=== PATIENT | female | born 1970 | race Caucasian/White ===

== ENCOUNTER 2020-05-11 13:06 | Outpatient (REF) | payer OTHER, SELFPAY | END 2020-05-11 13:07 | disposition home or self-care (01) | LOC: HO.LAB 13:06 | PROVIDERS: Visit Provider Internal Medicine | DX: Z20.822 Contact with and (suspected) exposure to COVID-19 (principal) | CPT/HCPCS: 36415; C9803; U0003 ==

== ENCOUNTER 2020-06-08 11:09 | Outpatient (REF) | payer OTHER, SELFPAY ==
--- NOTE | 2020-06-08 | US_ITS ---
EXAMINATION: US THYROID CLINICAL INFORMATION: Nontoxic multinodular goiter COMPARISON: None TECHNIQUE: Linear transducer grayscale and color Doppler examination with attention to the region of the thyroid. FINDINGS: SIZE: Measurements of the thyroid lobes and nodules are given in sagittal, anteroposterior and transverse dimensions respectively. Right Thyroid Lobe: 4.77 x 1.94 x 2.16 cm, volume 10.5 mL. Parenchyma: The gland echotexture is homogeneous. Thyroid vascularity is normal. Left Thyroid Lobe: 5.46 x 1.69 x 1.91 cm, volume 9.26 mL. Parenchyma: The gland echotexture is homogeneous. Thyroid vascularity is normal. Isthmus: 0.42 cm in maximum AP dimension. Estimated total number of nodules greater than or equal to 1 cm: one. E Business Specialist nodules are described as follows: 1. Location: Right Midpole. Size: 1.0 x 0.53 x 0.73 cm, volume 0.20 mL. Nodule characteristics: Composition: Mixed cystic and solid (1). Echogenicity: Hyperechoic (1). Shape: Wider Margins: Smooth (0). Echogenic Foci: None (0). ACR TI-RADS total points: 3 ACR TI-RADS category: 3 No additional nodules seen. NODES: No lymphadenopathy is seen in the tissue surrounding the thyroid gland. US/US thyroid IMPRESSION: 1.0 cm nodule mid pole right thyroid lobe with TRi Rad category 3. No intervention needed. Recommend 1 year follow-up. ACR TI-RADS RECOMMENDATIONS: Ultrasound-guided fine-needle aspiration, followup ultrasound, no further follow up. * TR1 (0 point) and TR 2 (2 points): No FNA or follow up * TR3 (3 points): FNA if more than or equal to 2.5 cm in maximum dimension, follow up in 1, 3 and 5 years if 1.5 to 2.4 cm in maximum dimension. * TR 4 (4-6 points): FNA if more than or equal to 1.5 cm in maximum dimension, follow up in 1, 2, 3 and 5 years if 1 to 1.4 cm in maximum dimension. * TR 5 (more than or equal to 7 points): FNA if more than or equal to 1 cm in maximum dimension, follow up every year for 5 years if 0.5 to 0.9 cm in maximum dimension. TR3, TR4 or TR5 nodules that are below the size threshold for follow up receive no follow up.
== END 2020-06-08 11:10 | disposition home or self-care (01) ==
LOC: HO.US 11:09
PROVIDERS: Visit Provider Internal Medicine Endocrinology, Diabetes & Metabolism
DX: E04.2 Nontoxic multinodular goiter (principal)
CPT/HCPCS: 76536

== ENCOUNTER 2020-06-12 12:44 | Outpatient (REF) | payer OTHER, SELFPAY ==
[2020-06-16 22:52] LABS: HPV mRNA E6/E7 rflx Not Detected (Not Detected)
== END 2020-06-12 12:45 | disposition home or self-care (01) ==
LOC: HO.LAB 12:44
PROVIDERS: Visit Provider Advanced Practice Midwife
DX: Z01.411 Encounter for gynecological examination (general) (routine) with abnormal findings (principal); Z11.51 Encounter for screening for human papillomavirus (HPV); R21 Rash and other nonspecific skin eruption
CPT/HCPCS: 36415; 87624; 88142

== ENCOUNTER 2020-06-15 14:44 | Outpatient (REF) | payer OTHER, SELFPAY ==
--- NOTE | ~2020-06-15 | MM_ITS ---
EXAMINATION: MM SCREENING DIGITAL BREAST TOMOSYNTHESIS, BILATERAL CLINICAL INFORMATION: Screening. Asymptomatic. The lifetime risk of breast cancer based on the Tyrer-Cuzick Model is 6%. COMPARISON: Mammography: 01/10/2018, 03/14/2014 TECHNIQUE: Digital breast tomosynthesis is performed in both the craniocaudal and mediolateral oblique views along with computer-aided detection (CAD). Synthesized 2D images are generated from the tomosynthesis. Additional exaggerated left CC view is provided. FINDINGS: There are scattered areas of fibroglandular density (ACR BI-RADS breast composition Category b). Breast tissue composition borders on heterogeneously dense. There is no developing density or interval mass or architectural abnormality. No abnormal calcifications. There are some scattered punctate and vascular and dermal calcifications. No significant changes. MM/MM tomosynthesis screening BI IMPRESSION: No significant changes from prior exams. ASSESSMENT: BI-RADS 1: Negative RECOMMENDATION: Routine annual mammography screening. This patient's information was entered into a reminder system with a target due date for their next mammogram.
== END 2020-06-15 14:45 | disposition home or self-care (01) ==
LOC: HO.MAMMO 14:44
PROVIDERS: PCP Internal Medicine Geriatric Medicine; Visit Provider Internal Medicine Geriatric Medicine
DX: Z12.31 Encounter for screening mammogram for malignant neoplasm of breast (principal)
CPT/HCPCS: 77063; 77067

== ENCOUNTER → 2020-06-29 11:01 | Outpatient (BNVA) | payer OTHER, SELFPAY | PROVIDERS: PCP Internal Medicine Geriatric Medicine; Visit Provider Physician Assistant ==

== ENCOUNTER → 2020-07-22 11:09 | Outpatient (BNVA) | payer OTHER, SELFPAY | PROVIDERS: PCP Nurse Practitioner Family; Visit Provider Internal Medicine Endocrinology, Diabetes & Metabolism ==

== ENCOUNTER 2020-07-23 10:53 | Outpatient (REF) | payer OTHER, SELFPAY ==
[2020-07-23 13:48] LABS: Free T4 (Free Thyroxine) 1.18 ng/dL (0.71-1.85); Thyroid Stimulating Hormone 1.12 uIU/mL (0.32-4.0)
[2020-07-24 05:12] LABS: Thyroid Peroxidase Antibodies <1 IU/mL (<9)
[2020-07-24 17:56] LABS: Thyroglobulin Antibodies <1 IU/mL (< or = 1)
== END 2020-07-23 10:54 | disposition home or self-care (01) ==
LOC: HO.LAB 10:53
PROVIDERS: PCP Internal Medicine Geriatric Medicine; Visit Provider Internal Medicine Endocrinology, Diabetes & Metabolism
DX: E04.2 Nontoxic multinodular goiter (principal)
CPT/HCPCS: 36415; 84439; 84443; 86376; 86800

== ENCOUNTER 2020-09-18 11:08 | Emergency (ER) | payer OTHER, SELFPAY ==
--- NOTE | ~2020-09-18 | XR_ITS ---
EXAMINATION: XR CHEST CLINICAL INFORMATION: Pain COMPARISON: None TECHNIQUE: Frontal view of the chest was obtained. FINDINGS: No significant abnormality is noted involving the heart, lungs, mediastinum, bony thorax or soft tissues. XR/XR chest 1V IMPRESSION: Unremarkable chest examination.
[2020-09-18 11:18] VITALS: BP 178/83; PULSE 102; RESP 18; TEMP 36.6; O2SAT 99; BMI 27.5
--- NOTE | 2020-09-18 11:18 | ED_ITS ---
HPI - Arrhythmia/Palpitations General Chief Complaint: Arrhythmia/Palpitations Stated Complaint: RAPID HEART BEAT Time Seen by Provider: 09/18/20 11:17 Source: patient Mode of arrival: ambulatory Limitations: no limitations History of Present Illness MD complaint: heart racing and palpitations Onset (ago): week(s) (1) Duration: intermittent Severity: mild Context: occurred during rest and occurred during exertion Associated symptoms: chest pain and anxiety Related Data Home Medications Medication Instructions Recorded Confirmed albuterol sulfate 90 mcg/actuation INHALATION 06/12/20 07/22/20 aerosol inhaler amitriptyline 25 mg tablet 25 mg PO DAILY 06/12/20 07/22/20 atorvastatin 10 mg tablet 10 mg PO DAILY 06/12/20 07/22/20 cholecalciferol (vitamin D3) 25 25 mcg PO DAILY 06/12/20 07/22/20 mcg (1,000 unit) tablet cyanocobalamin (vitamin B-12) 1,000 mcg PO DAILY 06/12/20 07/22/20 1,000 mcg tablet ferrous sulfate 325 mg (65 mg 325 mg PO DAILY 06/12/20 07/22/20 iron) tablet hydrochlorothiazide 12.5 mg tablet 12.5 mg PO DAILY 06/12/20 07/22/20 metformin 500 mg tablet,extended 1,000 mg PO BID 06/12/20 07/22/20 release 24 hr propranolol 80 mg capsule,24 80 mg PO DAILY 06/12/20 07/22/20 hr,extended release trazodone 50 mg tablet 50 mg PO BEDTIME 06/12/20 07/22/20 alcohol swabs pad TOPICAL 07/22/20 07/22/20 sumatriptan succinate 50 mg tablet 50 mg PO ONCE tab 07/22/20 07/22/20 Previous Rx's Medication Instructions Recorded clotrimazole 1 % topical cream 1 appl TOPICAL BID 14 Days #30 g 06/12/20 bisacodyl 5 mg tablet,delayed 10 mg PO ONCE 1 Days #2 tab 06/29/20 release docusate sodium 100 mg capsule 200 mg PO BEDTIME #60 cap 06/29/20 omeprazole 20 mg capsule,delayed 20 mg PO DAILY #30 cap 06/29/20 release polyethylene glycol 3350 17 gram 17 g PO DAILY #30 ea 06/29/20 oral powder packet polyethylene glycol 3350 17 238 g PO ONCE 1 Days #238 g 06/29/20 gram/dose oral powder Allergies Allergy/AdvReac Type Severity Reaction Status Date / Time penicillin G [Penicillin G] Allergy Mild RASH Unverified 01/23/20 15:48 penicillin V Allergy Unknown unknown Verified 06/29/20 11:02 PCN Allergy Unknown rash, Uncoded 10/07/19 00:00 swelling Review of Systems Review of Systems: Constitutional : No Fever, No Chills ENT/Mouth : No sore throat, No Rhinorrhea, No Swallowing Difficulty Eyes: No Eye Pain, No Swelling, No Redness Cardiovascular : pos Chest Pain, no SOB, No Orthopnea, no Edema, pos palpitati ons Respiratory : No Cough, No Sputum, No Wheezing, positive dyspnea Gastrointestinal : No Nausea, No Vomiting, No Diarrhea, No abdominal Pain, No Hematochezia, No Melena Genitourinary : No Dysuria, No Urinary Frequency, No Hematuria Musculoskeletal : No joint pain, No Myalgias Skin : No Skin Lesions, No rash Neuro : No Weakness, No Numbness, No Dizziness, No Headache Psych : posAnxiety/Panic, No Depression Heme/Lymph: No Bruising, No Lymphadenopathy Endocrine : No Polyuria, No Polydipsia All other systems reviewed and are negative [facility] Past Medical History Attestation statement: The following information was validated with the patient. 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 Oriented X3. No acute distress. Anxious tearful Eyes: Pupils equal, round and reactive to light. ENT: Pharynx normal. Neck: Normal inspection. Neck supple. CVS: Normal heart rate and rhythm. Pulses normal. Respiratory: No respiratory distress. Breath sounds normal. Abdomen: Soft and nontender. Skin: Skin warm and dry. Normal skin color. Normal skin turgor. Extremities: No lower extremity edema. No calf ttp Neuro: Oriented X 3. No motor deficit. No sensory deficit. Course Course Course Narrative: EKG nonischemic trop negative with 2 days of symptoms, ddimer negative, patient already on propanolol MDM - Arrhythmia/Palpitations MDM Narrative Medical decision making narrative: 50 yo female with DM, asthma here with palpitations and central chest discomfort x 1 week hx of same in past due to stress, she is tearful and upset about her son on dialysis, at this time labs, troponin, TSH, ddimer CXR and IV ativan for anxiety ordered, dispo per results and findings. Lab Data Result diagrams: 09/18/20 11:28 09/18/20 11:28 Labs: Lab Results 09/18/20 09/18/20 09/18/20 Range/Units 11:27 11:28 11:28 WBC 10.3 (4.8-10.8) X10*3/uL RBC 4.97 (4.20-5.50) X10*6/uL Hgb 13.5 (12.0-16.0) g/dl Hct 42.6 (37-47) % MCV 85.7 (80-98) fL MCH 27.2 (27.0-33.0) pg MCHC 31.7 (31.0-35.0) g/dl RDW 13.4 (11.0-16.0) % Plt Count 362 (160-400) X10*3/uL MPV 10.7 (9.4-12.3) fL Immature Gran % (Auto) 0.3 (0.0-0.4) % Neut % (Auto) 72.3 (45-73) % Lymph % (Auto) 19.2 L (20-40) % [place] % (Auto) 5.3 (2-11) % Eos % (Auto) 2.4 (0-4) % Baso % (Auto) 0.5 (0-2) % Lymph # (Auto) 2.0 (1.2-4.9) X10*3/uL [place] # (Auto) 0.6 (0.1-1.2) X10*3/uL Eos # (Auto) 0.3 (0.0-0.4) X10*3/uL Baso # (Auto) 0.1 (0.0-0.2) X10*3/uL Abs Immat Gran (auto) 0.03 (0.00-0.03) X10*3/uL Absolute Neuts (auto) 7.5 (2.0-8.3) X10*3/uL Absolute Nucleated RBC 0.000 (0.0-0.012) X10*3/uL Nucleated RBC % (auto) 0.0 (0.0-0.2) /100WBC D-Dimer < 200 NG/ML Sodium (135-145) mmol/L Potassium (3.3-5.1) mmol/L Chloride (96-108) mmol/L Carbon Dioxide (22-29) mmol/L Anion Gap (12-20) BUN (9-16) mg/dL Creatinine (0.5-1.4) mg/dL Estim Creat Clear Calc Estimated GFR Random Glucose (60-115) mg/dL Calcium (8.4-10.2) mg/dL Magnesium (1.6-2.6) mg/dL Total Bilirubin (0.0-1.0) mg/dL Direct Bilirubin (0.0-0.5) mg/dL AST (5-31) U/L ALT (0-31) U/L Alkaline Phosphatase (39-117) U/L Troponin I High Sens < 3.5 (<3.5-17.0) ng/L Total Protein (6.5-8.0) g/dL Albumin (3.5-5.0) g/dL TSH (0.32-4.0) uIU/mL 09/18/20 Range/Units 11:28 WBC (4.8-10.8) X10*3/uL RBC (4.20-5.50) X10*6/uL Hgb (12.0-16.0) g/dl Hct (37-47) % MCV (80-98) fL MCH (27.0-33.0) pg MCHC (31.0-35.0) g/dl RDW (11.0-16.0) % Plt Count (160-400) X10*3/uL MPV (9.4-12.3) fL Immature Gran % (Auto) (0.0-0.4) % Neut % (Auto) (45-73) % Lymph % (Auto) (20-40) % [place] % (Auto) (2-11) % Eos % (Auto) (0-4) % Baso % (Auto) (0-2) % Lymph # (Auto) (1.2-4.9) X10*3/uL [place] # (Auto) (0.1-1.2) X10*3/uL Eos # (Auto) (0.0-0.4) X10*3/uL Baso # (Auto) (0.0-0.2) X10*3/uL Abs Immat Gran (auto) (0.00-0.03) X10*3/uL Absolute Neuts (auto) (2.0-8.3) X10*3/uL Absolute Nucleated RBC (0.0-0.012) X10*3/uL Nucleated RBC % (auto) (0.0-0.2) /100WBC D-Dimer NG/ML Sodium 138 (135-145) mmol/L Potassium 3.7 (3.3-5.1) mmol/L Chloride 98 (96-108) mmol/L Carbon Dioxide 30 H (22-29) mmol/L Anion Gap 14 (12-20) BUN 9 (9-16) mg/dL Creatinine 0.75 (0.5-1.4) mg/dL Estim Creat Clear Calc 74.9 Estimated GFR > 60 Random Glucose 173 H (60-115) mg/dL Calcium 10.6 H (8.4-10.2) mg/dL Magnesium 1.7 (1.6-2.6) mg/dL Total Bilirubin 0.3 (0.0-1.0) mg/dL Direct Bilirubin 0.2 (0.0-0.5) mg/dL AST 16 (5-31) U/L ALT 19 (0-31) U/L Alkaline Phosphatase 82 (39-117) U/L Troponin I High Sens (<3.5-17.0) ng/L Total Protein 7.9 (6.5-8.0) g/dL Albumin 4.4 (3.5-5.0) g/dL TSH 0.84 (0.32-4.0) uIU/mL ECG Data Attestation: I personally reviewed and interpreted this ECG as follows: ECG interpretation date: 09/18/20 ECG interpretation time: 11:46 Interpretation: Rate: 82 Rhythm: NSR [place]: normal Normal P waves. Normal TISH. Normal QRS complex. ST T wave : normal no LA qTC: normal prior studies: normal , no acute ischemia The study has been interpreted contemporaneously by me. . Discharge Plan Discharge Clinical Impression: Palpitations, Anxiety Patient Disposition: Home, Self-Care Instructions: Heart Palpitations (ED), Anxiety (ED) Additional Instructions: return to ED for any worsening symptoms or concerns YOUR CALCIUM WAS SLIGHTLY HIGH PLEASE HAVE IT RECHECKED IN ONE WEEK WITH YOUR FAMILY DOCTOR Prescriptions: No Action alcohol swabs Pads, Medicated topical RF: 0 hydrochlorothiazide 12.5 mg tablet 12.5 mg PO DAILY RF: 0 cholecalciferol (vitamin D3) 25 mcg (1,000 unit) tablet 25 mcg PO DAILY RF: 0 metformin 500 mg tablet extended release 24 hr 1,000 mg PO BID RF: 0 albuterol sulfate 90 mcg/actuation HFA aerosol inhaler inhalation RF: 0 propranolol 80 mg capsule,extended release 24 hr 80 mg PO DAILY RF: 0 amitriptyline 25 mg tablet 25 mg PO DAILY RF: 0 cyanocobalamin (vitamin B-12) 1,000 mcg tablet 1,000 mcg PO DAILY RF: 0 atorvastatin 10 mg tablet 10 mg PO DAILY RF: 0 trazodone 50 mg tablet 50 mg PO BEDTIME RF: 0 ferrous sulfate 325 mg (65 mg iron) tablet 325 mg PO DAILY RF: 0 clotrimazole 1 % cream 1 appl topical BID 14 Days Qty: 30 RF: 0 sumatriptan succinate 50 mg tablet 50 mg PO ONCE RF: 0 bisacodyl [Dulcolax (bisacodyl)] 5 mg tablet,delayed release (DR/EC) 10 mg PO ONCE 1 Days Qty: 2 RF: 0 polyethylene glycol 3350 [Miralax] 17 gram/dose powder 238 g PO ONCE 1 Days Qty: 238 RF: 0 docusate sodium [Colace] 100 mg capsule 200 mg PO BEDTIME Qty: 60 RF: 5 polyethylene glycol 3350 [Miralax] 17 gram powder in packet 17 g PO DAILY Qty: 30 RF: 5 omeprazole 20 mg capsule,delayed release(DR/EC) 20 mg PO DAILY Qty: 30 RF: 5 Referrals: Name,MD Tiburcio [Primary Care Provider] - 1 week (RECHECK CALCIUM LEVEL) Stand Alone Forms: Work/School Release
--- NOTE | 2020-09-18 11:24 | ECG_ITS ---
Test Reason : PALPITATION Blood Pressure : / mmHG Vent. Rate : 082 BPM Atrial Rate : 082 BPM P-R Int : 124 ms QRS Dur : 076 ms QT Int : 392 ms P-R-T Axes : 026 024 039 degrees QTc Int : 457 ms Normal sinus rhythm Normal ECG When compared with ECG of 06-JUL-2017 08:21, No significant change was found Referred By: Dotty Barrientos Electronically Signed By:NORA COTTER MD
[2020-09-18 11:35] LABS: MANUAL DIFF FLAG NO
[2020-09-18] MEDS: LORazepam 2 MG/ML VIAL 0.5 MG IVPUSH (11:36)
[2020-09-18 11:37] LABS: Basophils Absolute Auto 0.1 X10*3/uL (0.0-0.2); Basophils Percent Auto 0.5 % (0-2); Eosinophils Absolute Auto 0.3 X10*3/uL (0.0-0.4); Eosinophils Percent Auto 2.4 % (0-4); Hematocrit 42.6 % (37-47); Hemoglobin 13.5 g/dl (12.0-16.0); Imm Gran Abs Auto 0.03 X10*3/uL (0.00-0.03); Imm Gran Pct Auto 0.3 % (0.0-0.4); Lymphocytes Percent Auto 19.2 % (20-40); Mean Corpuscular HGB Conc 31.7 g/dl (31.0-35.0); Mean Corpuscular Hemoglobin 27.2 pg (27.0-33.0); Mean Corpuscular Volume 85.7 fL (80-98); Mean Platelet Volume 10.7 fL (9.4-12.3); Monocytes Absolute Auto 0.6 X10*3/uL (0.1-1.2); Monocytes Percent Auto 5.3 % (2-11); Neutrophils Absolute Auto 7.5 X10*3/uL (2.0-8.3); Neutrophils Percent Auto 72.3 % (45-73); Platelet Count 362 X10*3/uL (160-400); Red Blood Count 4.97 X10*6/uL (4.20-5.50); Red Cell Distribution Width 13.4 % (11.0-16.0); White Blood Count 10.3 X10*3/uL (4.8-10.8)
[2020-09-18 11:50] LABS: D Dimer < 200 NG/ML
[2020-09-18 12:03] LABS: Alanine Aminotransferase 19 U/L (0-31); Albumin Level 4.4 g/dL (3.5-5.0); Alkaline Phosphatase 82 U/L (39-117); Anion Gap 14 (12-20); Aspartate Amino Transferase 16 U/L (5-31); Bilirubin Direct 0.2 mg/dL (0.0-0.5); Bilirubin Total 0.3 mg/dL (0.0-1.0); Blood Urea Nitrogen 9 mg/dL (9-16); Carbon Dioxide 30 mmol/L (22-29); Chloride 98 mmol/L (96-108); Creatinine Clr Calc Pharmacy 74.9; Estimated Glomerular Filt Rate > 60; Glucose Random 173 mg/dL (60-115); Magnesium 1.7 mg/dL (1.6-2.6); Potassium 3.7 mmol/L (3.3-5.1); Sodium 138 mmol/L (135-145); Total Protein 7.9 g/dL (6.5-8.0)
[2020-09-18 12:07] LABS: Troponin-I High Sensitivity < 3.5 ng/L (<3.5-17.0)
[2020-09-18 12:12] LABS: Calcium 10.6 mg/dL (8.4-10.2)
[2020-09-18 12:21] LABS: Thyroid Stimulating Hormone 0.84 uIU/mL (0.32-4.0)
[2020-09-18 13:03] VITALS: BP 142/81; PULSE 83; RESP 18; TEMP 36.7; O2SAT 97
== END 2020-09-18 13:03 | disposition home or self-care (01) ==
PROVIDERS: Emergency Provider Emergency Medicine; PCP Internal Medicine Geriatric Medicine
DX: R00.2 Palpitations (principal); F41.1 Generalized anxiety disorder; F43.0 Acute stress reaction; Z79.899 Other long term (current) drug therapy
CPT/HCPCS: 36415; 71045; 80048; 80076; 83735; 84443; 84484; 85025; 85379; 93005; 96374; 99283; 99284; J2060

== ENCOUNTER 2021-07-19 13:10 | Outpatient (REF) | payer OTHER, SELFPAY ==
--- NOTE | ~2021-07-19 | US_ITS ---
EXAMINATION: US THYROID CLINICAL INFORMATION: Nontoxic multinodular goiter. COMPARISON: None TECHNIQUE: Linear transducer grayscale and color Doppler examination with attention to the region of the thyroid. FINDINGS: SIZE: Measurements of the thyroid lobes and nodules are given in sagittal, anteroposterior and transverse dimensions respectively. Right Thyroid Lobe: 5.3 x 2.1 x 2.3 cm, volume 13.1 mL. Previously it measured 4.8 x 1.9 x 2.2 cm and volume 10.5 mL Parenchyma: The gland echotexture is homogeneous. Thyroid vascularity is normal. Left Thyroid Lobe: 5.0 x 1.6 x 2.0 cm, volume 8.2 mL. Previously it measured 5.5 x 1.7 x 1.9 cm and 9.3 mL volume. Parenchyma: The gland echotexture is homogeneous. Thyroid vascularity is normal. Isthmus: 0.24 cm in maximum AP dimension. Previously it measured 0.42. Estimated total number of nodules greater than or equal to 1 cm: 0. Loading Dock Helper nodules are described as follows: 1. Location: Right midpole. Size: 0.9 x 0.43 x 0.91 cm, volume 0.2 mL. Nodule characteristics: Composition: Mixed cystic and solid (1). Echogenicity: Hypoechoic Shape: Wider Margins: Smooth (0). Echogenic Foci: None (0). ACR TI-RADS total points: 3 ACR TI-RADS category: 3 NODES: No lymphadenopathy is seen in the tissue surrounding the thyroid gland. US/US thyroid IMPRESSION: Normal-appearing thyroid gland except for a nonsuspicious right midpole thyroid nodule. ACR TI-RADS RECOMMENDATION REFERENCE: Ultrasound-guided fine-needle aspiration, followup ultrasound, no further follow up. * TR1 (0 point) and TR 2 (2 points): No FNA or follow up * TR3 (3 points): FNA if more than or equal to 2.5 cm in maximum dimension, followup ultrasound in 1, 3 and 5 years if 1.5 to 2.4 cm in maximum dimension. * TR4 (4-6 points): FNA if more than or equal to 1.5 cm in maximum dimension, followup ultrasound in 1, 2, 3 and 5 years if 1 to 1.4 cm in maximum dimension. * TR5 (more than or equal to 7 points): FNA if more than or equal to 1 cm in maximum dimension, followup ultrasound every year for 5 years if 0.5 to 0.9 cm in maximum dimension. * TR3, TR4 or TR5 nodules that are below the size threshold for follow up receive no follow up.
[2021-07-19 15:10] LABS: Free T4 (Free Thyroxine) 1.13 ng/dL (0.71-1.85); Thyroid Stimulating Hormone 0.48 uIU/mL (0.32-4.0)
== END 2021-07-19 13:11 | disposition home or self-care (01) ==
LOC: HO.US 13:10
PROVIDERS: Absent Provider Internal Medicine Endocrinology, Diabetes & Metabolism; PCP Nurse Practitioner Primary Care; Visit Provider Internal Medicine Endocrinology, Diabetes & Metabolism
DX: E04.2 Nontoxic multinodular goiter (principal)
CPT/HCPCS: 36415; 76536; 84439; 84443

== ENCOUNTER → 2021-07-21 12:51 | Outpatient (BNVA) | payer OTHER, SELFPAY | PROVIDERS: PCP Nurse Practitioner Primary Care; Visit Provider Internal Medicine Endocrinology, Diabetes & Metabolism | DX: E04.2 Nontoxic multinodular goiter (principal) | CPT/HCPCS: 99212 ==

== ENCOUNTER 2022-09-05 14:28 | Outpatient (REF) | payer OTHER, SELFPAY ==
--- NOTE | ~2022-09-05 | MM_ITS ---
EXAMINATION: MM SCREENING DIGITAL BREAST TOMOSYNTHESIS, BILATERAL CLINICAL INFORMATION: Screening. Asymptomatic. The lifetime risk of breast cancer based on the Tyrer-Cuzick Model is 7%. COMPARISON: Mammography: 06/15/2020, 01/10/2018 TECHNIQUE: Digital breast tomosynthesis is performed in both the craniocaudal and mediolateral oblique views along with computer-aided detection (CAD). Synthesized 2D images are generated from the tomosynthesis. FINDINGS: There are scattered areas of fibroglandular density (ACR BI-RADS breast composition Category b). There are no significant masses, abnormal calcifications, or other abnormalities. Parenchymal pattern is similar to prior studies. Breast tissue composition borders on heterogeneously dense. Particularly stromal markings bilateral axilla are is similar to prior studies. Again, there are scattered punctate and coarse calcifications. There is no developing density or architectural abnormality. The axilla and skin contours are unremarkable. No significant changes. MM/MM tomosynthesis screening BI IMPRESSION: No mammographic evidence of malignancy. ASSESSMENT: BI-RADS 2: Benign RECOMMENDATION: Routine annual mammography screening. This patient's information was entered into a reminder system with a target due date for their next mammogram.
== END 2022-09-05 14:29 | disposition home or self-care (01) ==
LOC: HO.MAMMO 14:28
PROVIDERS: PCP Nurse Practitioner Primary Care; Visit Provider Nurse Practitioner Primary Care
DX: Z12.31 Encounter for screening mammogram for malignant neoplasm of breast (principal)
CPT/HCPCS: 77063; 77067

== ENCOUNTER 2023-12-18 11:14 | Outpatient (REF) | payer SELFPAY ==
--- NOTE | ~2023-12-18 | MM_ITS ---
EXAMINATION: MM SCREENING DIGITAL BREAST TOMOSYNTHESIS, BILATERAL CLINICAL INFORMATION: Screening. Asymptomatic. COMPARISON: Mammography: This study is compared with prior exams dating back to 2018. TECHNIQUE: Digital breast tomosynthesis is performed in both the craniocaudal and mediolateral oblique views along with computer-aided detection (CAD). Synthesized 2D images are generated from the tomosynthesis. FINDINGS: The breasts are heterogeneously dense, which may obscure small masses (ACR BI-RADS breast composition Category c). There are no significant masses, abnormal calcifications, or other abnormalities. MM/MM tomosynthesis screening BI IMPRESSION: No mammographic evidence of malignancy. ASSESSMENT: BI-RADS BI-RADS 1 - Negative RECOMMENDATION: Routine annual mammography screening. 1 year F/U This examination should not preclude the clinical evaluation of a suspicious palpable abnormality. This patient's information was entered into a reminder system with a target due date for their next mammogram. Electronically signed by: Roxy Braswell MD 01/11/2024 02:57 PM EDT
== END 2023-12-18 11:15 | disposition home or self-care (01) ==
LOC: HO.MAMMO 11:14
PROVIDERS: PCP Nurse Practitioner Primary Care; Visit Provider Nurse Practitioner Primary Care
DX: Z12.31 Encounter for screening mammogram for malignant neoplasm of breast (principal)
CPT/HCPCS: 77063; 77067

== ENCOUNTER → 2023-12-18 11:45 | Outpatient (BNV) | payer OTHER, SELFPAY | PROVIDERS: PCP Nurse Practitioner Primary Care; Visit Provider Radiology Diagnostic Radiology | DX: Z12.31 Encounter for screening mammogram for malignant neoplasm of breast (principal) | CPT/HCPCS: 77063; 77067 ==

== ENCOUNTER 2024-03-20 17:51 | Outpatient (REF) | payer OTHER, SELFPAY ==
[2024-03-21 12:05] LABS: Bacterial Vaginosis PCR POSITIVE (Negative); Candida Group PCR NOT DETECTED (Not Detect); Candida glab krusei PCR NOT DETECTED (Not Detect); Trichomonas vaginalis PCR NOT DETECTED (Not Detect)
== END 2024-03-20 17:52 | disposition home or self-care (01) ==
LOC: HO.HHCLNP 17:51
PROVIDERS: Visit Provider Nurse Practitioner
DX: M54.50 Low back pain, unspecified (principal); R10.9 Unspecified abdominal pain
CPT/HCPCS: 0352U; 87086; 87088; 87186

== ENCOUNTER 2024-05-23 13:41 | Outpatient (AMB) | payer OTHER, SELFPAY ==
--- NOTE | 2024-05-23 13:43 | A.OFFVIS_ITS ---
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 She is doing well with airframe and powerplant technician concerns. Currently not sexually active, partner 3 years ago. Denies any vaginal dryness or irritation. STI testing offered; she declines. Attempting to eat a healthy diet with calcium and vitamin D and stays active with exercise. Last pap smear; 2020. Last mammogram; 2023. Colonoscopy is next month. Denies any family history of breast, ovarian or colon cancer. 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 Sexual orientation: Straight/Heterosexual Female Reproductive History Menstrual control method: permanent sterilization Permanent Sterilization: BTL Menopause type: natural Total pregnancies: 5 Full term: 5 Number of Living Children: 5 Date of last pap smear: 06/12/20 (neg pap and hpv) Date of Mammogram: 12/18/23 (Birad 1) Review of Systems Const All systems reviewed & are unremarkable except as noted in HPI and below Reports as per HPI Eyes Reports no additional complaints ENT Reports no additional complaints Card Reports no additional complaints Resp Reports no additional complaints GI Reports as per HPI and Reports no additional complaints Reports as per HPI Musc Reports no additional complaints Skin/Breast Reports as per HPI Neuro Reports no additional complaints Psych Reports no additional complaints Endo Reports no additional complaints Russel/Lymph Reports no additional complaints Aller/Immun Reports no additional complaints Physical Exam Vital Signs: Last Vital Signs BP 112/74 05/23/24 13:44 BMI result Body Mass Index 23.2 Const General: cooperative, healthy appearing, no acute distress, well developed and alert Orientation/consciousness: patient oriented x3 HEENT Head: Yes normal to inspection Eyes General: appearance normal, both eyes and all related structures Neck Neck: Yes normal visual inspection Thyroid: Thyroid normal Chest Chest palpation & inspection: normal inspection of the chest and other (no puckering, dimpling, peau de orange, retraction, discharge, masses) Breast/axilla inspection: normal inspection of the breasts Breast/axilla palpation: normal palpation of the breasts Resp Effort & Inspection: normal respiratory effort GI Inspection: Yes normal to inspection Palpation (GI): Soft to palpation Rectal Exam - Female: deferred General: Yes bladder normal to palpation External Female Exam: normal external appearance and normal appearance of the urethra Speculum Exam - Vagina: normal appearance of the vagina, normal palpation, normal vaginal discharge and vagina atrophic Speculum Exam - Cervix: normal appearance of the cervix and normal palpation Bimanual exam- vagina & uterus: normal bimanual exam, normal palpation, uterine size normal, bladder normal to palpation, normal palpation and non-tender Bimanual Exam- Adnexa, other: no masses Skin General skin exam: no rashes or lesions noted Rashes: no rashes Neuro General: patient oriented x3 Cognition (Neuro): normal cognition Extrem General: Yes normal to inspection Psych Attitude: cooperative Thought process: Normal thought process present Assessment & Plan Assessment & Plan (1) Encounter for well woman exam with routine gynecological exam: Code(s): Z01.419 - Encounter for gynecological examination (general) (routine) without abnormal findings Category: Medical Plan Discussed: Current recommendations for pap smears per ASCCP guidelines. Breast awareness, periodic self breast exams and yearly mammogram. Maintain a healthy lifestyle, well balanced diet including Calcium 1,200 mg and Vitamin D 600 IU daily, and routine exercise. Contact the office with any postmenopausal bleeding. Patient verbalizes understanding and agrees to the plan of care. She was given opportunity to ask questions and all questions were answered to the best of my ability. RTO in 1 year for annual airframe and powerplant technician exam. This note is constructed using voice recognition software. While every effort has been made to ensure accuracy, upholstery parts sorter errors may have been included. Coding Level of Care Code New Pt Prev Care 40-64y(44632) Diagnoses Encounter for well woman exam with routine gynecological exam Z01.419
[2024-05-23 13:44] VITALS: BP 112/74; BMI 23.2
== END 2024-05-23 14:05 | disposition home or self-care (01) ==
LOC: HO.HWS 13:41
PROVIDERS: PCP Nurse Practitioner Primary Care; Visit Provider Advanced Practice Midwife
DX: Z01.419 Encounter for gynecological examination (general) (routine) without abnormal findings (principal)
CPT/HCPCS: 99386; 99459

== ENCOUNTER → 2024-05-23 13:41 | Outpatient (BNVA) | payer OTHER, SELFPAY | PROVIDERS: PCP Nurse Practitioner Primary Care; Visit Provider Advanced Practice Midwife | DX: Z01.419 Encounter for gynecological examination (general) (routine) without abnormal findings (principal) | CPT/HCPCS: 99386; 99459 ==

== ENCOUNTER 2024-08-06 | Outpatient (REF) | payer OTHER, SELFPAY ==
--- OUTSIDE RECORDS SUMMARY | 2024-08-07 13:52 | XMS_ITS | Encounter Summary ---
Author Organization [employer] Address [address] [place] [address] 7[address] [place] [address] Care Team Providers Care Diesel Dinkey Engineer Name Role Phone Juani Helton Primary Care Provider [phone] Bridgette Conte Unavailable Reason for Visit * Reason Onset Date Comments call back 07/28/2022 Encounter Details Date Type Department Care Team (Late st Contact Info) Description 07/28/[address] [facility] [address] [place] [address] Juani Helton ANP [address] [place] [address] call back Social History Tobacco Use Types Packs/Day Years Used Date Smoking Tobacco: Never Smokeless Tobacco: Never Alcohol Use Standard Drinks/Week Comments Never 0 (1 standard drink = 0.6 oz pur e alcohol) Comments Unknown Sex and Gender Information Value Date Recorded Sex Assigned at Female 03/07/2022 10:21 AM EDT Legal Sex Female 10:21 AM EDT Gender Identity Female 03/07/2022 10:21 AM EDT Sexual Orientation Straight 03/07/2022 10 :21 AM EDT documented as of this encounter Miscellaneous Notes * Telephone Encounter - Aureliano Deleon - 07/28/2022 11:43 AM EDT Tc from pt returning call back. Pt requesting a call back. documented in this encounter Plan of Treatment Upcoming Encounters Date Type Department Care Team (Late st Contact Info) Description 10/22/2024 2:15 PM EDT Office Visit [facility] [address] [place] [address] Juani Helton ANP [address] [place] [address] documented as of this encounter Visit Diagnoses Not on filedocumented in this encounter Care Teams Diesel Dinkey Engineer Relationship Specialty Start Date End Date Juani Helton ANP [address] [place] [address] PCP - General Family Medicine 01/06/20 Bridgette Conte 175 [facility] 2nd Floor [address] [place] [address] Gastroenterology 04/17/24 [facility] [place] [place]PERVIS[place] Pest Control Operator 04/17/24 documented as of this encounter
--- OUTSIDE RECORDS SUMMARY | 2024-08-07 13:52 | XMS_ITS | Clinical Summary ---
Author Organization [facility] Address [address] [place] [address] Phone Care Team Providers Care Vacuum Cleaner Repairer Name Role Phone Juani Helton Onesimo BATTERY ENGINEER Primary Care Provider Medications polyethylene glycol (Golytely) 236-22.74-6.74 -5.86 gram solution Take 4L by mouth once for one dose. May substitue any PEG. Starting at 6PM the night before your procedure drink 1 8oz glasses at your own pace until you complete half of the gallon. Finish 2nd half of the gallon 5 hours before your procedure. 4000 mL 5 Active bisacodyL (DULCOLAX) 5 mg EC tablet Take 2 tablets by mouth right before beginning bowel prep. See instructions provided by the office 2 tablet 5 Active Encounters Date Type Department Care Team Description 06/20/2024 Telephone Gastroenterology - [place] 175 [facility] [address] [address] Bridgette Conte MD special procedure from Last 3 Months Social History Tobacco Use Types Packs/Day Years Used Date Smoking Tobacco: Never Assessed Comments Unknown Sex and Gender Information Value Date Recorded Sex Assigned at Not on file Legal Sex Female 11:41 AM EDT Gender Identity Not on file Sexual Orientation Not on file Plan of Treatment Upcoming Encounters Date Type Department Care Team (Late st Contact Info) Description 10/18/2024 7:30 AM EDT Appointment [facility] Endoscopy [address] [place] [address] Andrew Tapia DO 175 [facility] 200 [place] [address] Health Maintenance Due Date Last Done Comments Breast Cancer Screening 1970 DTaP,Tdap,and Td Vaccines (1 - Tdap) 1989 Hepatitis B Vaccines (1 of 3 - 19+ 3-dose series) 1989 Cervical Cancer Screening: P ap Smear 1991 Pneumococcal Vaccine: 50+ Ye ars (1 of 1 - PCV) 2020 Zoster Vaccines (1 of 2) 2020 COVID-19 Vaccine (1 - 2023-2 5 season) 2024 Colorectal Cancer Screening: Colonoscopy 02/16/2024 Depression Screening 02/16/2024 HIV Screening 02/16/2024 Hepatitis C Screening 02/16/2024 Social Influencers of Health Screening 02/16/2024 Influenza Vaccine (Season Ended) 2025 HIB Vaccines Aged Out No longer eligi ble based on patient's age to complete this topic HPV Vaccines Aged Out No longer eligi ble based on patient's age to complete this topic Hepatitis A Vaccines Aged Out No long er eligible based on patient's age to complete this topic IPV Vaccines Aged Out No longer eligi ble based on patient's age to complete this topic MMR Vaccines Aged Out No longer eligi ble based on patient's age to complete this topic Meningococcal ACWY Vaccine Aged Out N o longer eligible based on patient's age to complete this topic Meningococcal B Vacine Aged Out No lo nger eligible based on patient's age to complete this topic Pneumococcal Vaccine: Pediat rics (0 to 5 Years) and At-Risk Patients (6 to 64 Years) Aged Out No longer eligible b ased on patient's age to complete this topic RSV Immunization Patients Un ash 20 months Aged Out No longer eligible b ased on patient's age to complete this topic Varicella Vaccines Aged Out No longer eligible based on patient's age to complete this topic Insurance MEDICAID - [place] Care Teams Vacuum Cleaner Repairer Relationship Specialty Start Date End Date Juani Helton NP [address] [place] [id number] PCP - General 01/24/24
--- OUTSIDE RECORDS SUMMARY | 2024-08-07 13:52 | XMS_ITS | Encounter Summary ---
Author Organization [employer] Address [address] [facility] 7t [place] [address] Care Team Providers Care Iron Bender Name Role Phone Juani Helton YURI Primary Care Provider [phone] Bridgette Conte Unavailable Reason for Visit * Reason Comments uti symptoms Encounter Details Date Type Department Care Team ([facility] st Contact Info) Description 08/06/2024 9:00 AM EDT Office Visit [facility] [address] [place], [place] [phone] Pipe Ann MD [address] [place] [address] Dysuria (Primary Dx); Hypertension associated with diabetes ([facility]/HCC) Social History Tobacco Use Types Packs/Day Years Used Date Smoking Tobacco: Never Passive Smoke Exposure: Never Smokeless Tobacco: Never Alcohol Use Standard Drinks/Week Comments Never 0 (1 standard drink = 0.6 oz pur e alcohol) Depression Answer Date Recorded Patient Health Questionnaire-9 Score 5 01/23/2024 Patient Health Questionnaire-9 Score 5 01/23/2024 Last PHQ-9: Questionnaire Data Not on file 0 01/23/2024 Housing Stability Answer Date Recorded What is your housing situation today? I have hodan camarena 04/08/[address] you li ve. Do you have problems with any of the following? None of the above 04/08/2024 Food Insecurity Answer Date Recorded Within the past 12 months, y ou worried that your food would run out before you got money to buy more: Never True 04/08/2024 Within the past 12 months,th e food you bought just didn't last and you didn't have enough money to get more: Never True 06/2023 Transportation Answer Date Recorded In the past 12 months, has l ack of transportation kept you from medical appts, meetings, work or from getting things needed for daily living? No 04/08/2024 Utilities Answer Date Recorded In the past 12 months, has t he electric, gas, oil or water company threatened to shut off services in your home? No 04/08/2024 Depression Answer Date Recorded Patient Health Questionnaire-2 Score 2 01/23/2024 Internet Access Answer Date Recorded Internet Access Q1 Yes 04/08/2024 Internet Access Q2 Not on file 04/08/2024 Comments Unknown Sex and Gender Information Value Date Recorded Sex Assigned at Female 03/07/2022 10:21 AM EDT Legal Sex Female 10:21 AM EDT Gender Identity Female 03/07/2022 10:21 AM EDT Sexual Orientation Straight 03/07/2022 10 :21 AM EDT documented as of this encounter Last Filed Vital Signs Vital Sign Reading Time Taken Comments Blood Pressure 152/84 08/06/2024 9:07 AM EDT Pulse 100 08/06/2024 9:07 AM EDT Temperature 36.8 ??C (98.2 ??F) 08/06/2024 9:07 AM ED T Respiratory Rate 17 08/06/2024 9:07 AM EDT Oxygen Saturation 98% 08/06/2024 9:07 AM EDT Inhaled Oxygen Concentration - - Weight 54.7 kg (120 lb 9.6 oz) 08/06/2024 9:07 A M EDT Height - - Body Mass Index 23.55 07/22/2024 11:15 AM EDT documented in this encounter Progress Notes * Pipe Ann MD - 08/06/2024 9:00 AM EDT Subjective Patient ID: Julia Forman is a 54 y.o. female. HPI Last night Julia had onset of burning on urination, urgency, frequency. Denies fever, chills, n/v, vaginal discharge, abdominal or flank pain. Julia was seen in walk-in clinic March 20, 2024 and was found to have a UTI. Urine culture grew Klebsiella pneumonia resistant to Macrobid and ampicillin, sensitive to the other antibiotics tested. She was treated with Duricef. Also had + BV then, treated with oral Flagyl. Lives with daughter, son, granddaughter. LMP=3 years ago. 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 Never smoked. Patient Active Problem List Diagnosis Anxiety Asthma Hypertension associated with diabetes ([facility]) Hypertriglyceridemia Migraine Multinodular goiter Type 2 diabetes mellitus with hyperglycemia, without long-term current use of insulin ([facility]) Bilateral low back pain without sciatica The following portions of the chart were reviewed this encounter and updated as appropriate: Review of Systems Constitutional: Negative for fever. Respiratory: Negative for shortness of breath. Cardiovascular: Negative for chest pain. Gastrointestinal: Negative for abdominal pain. Genitourinary: Positive for dysuria, frequency and urgency. Negative for flank pain and vaginal discharge. Skin: Negative for rash. Neurological: Negative for headaches. Objective Physical Exam Constitutional: Appearance: Normal appearance. HENT: Right Ear: Tympanic membrane, ear canal and external ear normal. Left Ear: Tympanic membrane, ear canal and external ear normal. Nose: Nose normal. Mouth/Throat: Mouth: Mucous membranes are moist. Pharynx: Oropharynx is clear. Eyes: Conjunctiva/sclera: Conjunctivae normal. Pupils: Pupils are equal, round, and reactive to light. Cardiovascular: Rate and Rhythm: Normal rate and regular rhythm. Heart sounds: No murmur heard. Pulmonary: Effort: Pulmonary effort is normal. Breath sounds: Normal breath sounds. Abdominal: Tenderness: There is no right CVA tenderness or left CVA tenderness. Musculoskeletal: General: Normal range of motion. Cervical back: No tenderness. Skin: Findings: No rash. Neurological: Mental Status: She is alert. Gait: Gait is intact. Psychiatric: Mood and Affect: Mood normal. Behavior: Behavior normal. Procedures Assessment/Plan Diagnoses and all orders for this visit: Dysuria Urine C&S pending. Based on sensitivities of previous Klebsiella pneumonia UTI in March, prescribed Cipro to 50 mg twice daily for 3 days. She is leaving for [place] tomorrow for 2-week stay. Because of positive BV results in March, I also prescribed Flagyl vaginal gel to bring to [place], and will call her if BV results are positive so she can start using it. return to clinic if not improving. - Culture, Urine, Routine - Bacterial Vaginosis; Future - Chlamydia/N. Gonorrhoeae RNA, TMA, Vagina Hypertension associated with diabetes ([facility]) She forgot to take her blood pressure medication last night. She will take it when she returns home. Has home BP monitor. Reviewed BP parameters, given written BP log that includes BP parameters, to keep daily. Call if BP readings are elevated. Other orders - metroNIDAZOLE (Metrogel) 0.75 % vaginal gel; Insert into the vagina at bedtime for 5 days. - ciprofloxacin (Cipro) 250 MG tablet; Take 1 tablet (250 mg) by mouth 2 times daily for 3 days. documented in this encounter Plan of Treatment Upcoming Encounters Date Type Department Care Team (Late st Contact Info) Description 10/22/2024 2:15 PM EDT Office Visit [facility] [address] [place], [place] [phone] Juani Helton ANP [address] [place], [place] [phone] Scheduled Orders Name Type Priority Associated Diagnoses Orde r Schedule Culture, Urine, Routine Microbiology Routine Dysuria Ordered: 08/06/2024 Bacterial Vaginosis Microbiology Routine Dysuria Expected: 08/06/2024 (Approximate), Expires: 08/06/2025 Chlamydia/N. Gonorrhoeae RNA, TMA, Vagina Microbiology Routine Dysuria Ordered: 08/06/2024 documented as of this encounter Procedures Procedure Name Priority Date/Time Associated Diagnosis Comments POCT URINALYSIS DIPSTICK Routine 08/06/2024 9:32 AM EDT Dysuria documented in this encounter Results * (ABNORMAL) POCT urinalysis dipstick manually resulted (08/06/2024 9:32 AM EDT) Color, UA Yellow Clarity, UA Clear Glucose, UA Negative Bilirubin, UA Negative Ketones, UA Negative Spec Grav, UA 1.010 Blood, UA Negative Negative, None Detected pH, UA 5.5 Protein, UA Negative Urobilinogen, UA 1.0 Leukocytes, UA Few 15(A) Negative, Rare, Trace Comment:small Nitrite, UA Negative Negative, None Detected Urine 08/06/2024 9:32 AM EDT Pipe Ann MD POINT OF CARE TEST ENTER/EDIT OR DERABLES Final Result documented in this encounter Visit Diagnoses Diagnosis Dysuria- Primary Hypertension associated with diabetes ([facility]/HCC) Unspecified essential hypertension documented in this encounter Additional Health Concerns Assessment Noted Time PHQ-9 Depression Total Score: 5 01/23/20 24 2:29 PM EDT documented as of this encounter Care Teams Iron Bender Relationship Specialty Start Date End Date Juani Helton ANP [address] [place] [address] PCP - General Family Medicine 01/06/20 Bridgette Conte 175 [facility] 2nd Floor [address] [place] [address] Gastroenterology 04/17/24 [facility] [place]ERAPIST Salvage Engineer 04/17/24 documented as of this encounter
--- OUTSIDE RECORDS SUMMARY | 2024-08-07 13:52 | XMS_ITS | Encounter Summary ---
Author Organization [employer] Address [address] [facility] 7t [place] [address] Care Team Providers Care Sustainability Purchasing Agent Name Role Phone Juani Helton Primary Care Provider [phone] Bridgette Conte Unavailable Reason for Visit * Reason Onset Date Comments Prior Authorization 07/29/2022 Encounter Details Date Type Department Care Team (Late st Contact Info) Description 07/29/2022 Telephone [facility] [address] [place], [place] [phone] Juani Helton ANP [address] [place] [address] Prior Authorization Social History Tobacco Use Types Packs/Day Years [...] encounter Miscellaneous Notes * Telephone Encounter - Alicia Munoz - 08/02/2022 9:27 AM EDT Called pharmacy med didn't need a PA it's ready for molded goods spot picker * Telephone Encounter - YURI Bustamante - 08/01/2022 5:35 PM EDT Thanks, please initiate PA * Telephone Encounter - Yandy Kristie - 07/29/2022 3:20 PM EDT Tc from [facility] from [facility] requesting a PA for medication empagliflozin (Jardiance) 10MG. documented in this encounter Plan of Treatment Upcoming Encounters Date Type Department Care Team (Late st Contact Info) Description 10/22/2024 2:15 PM EDT Office Visit [facility] [address] [place] [address] Juani Helton ANP [address] [place] [address] documented as of this encounter Visit Diagnoses Not on filedocumented in this encounter Care Teams Sustainability Purchasing Agent Relationship Specialty Start Date End Date Juani Helton ANP [address] [place] [address] PCP - General Family Medicine 01/06/20 Bridgette Conte [address] [place] [address] 2nd Floor [address] [place] [address] Gastroenterology 04/17/24 [facility] [place] SHEET METAL SUPERINTENDENT Loom Winder Tender 04/17/24 documented as of this encounter
--- OUTSIDE RECORDS SUMMARY | 2024-08-07 13:52 | XMS_ITS | Encounter Summary ---
Author Organization [employer] Address [address] [facility] [address] [place] [address] Care Team Providers Care Office Professionals Name Role Phone Juani Helton YURI Primary Care Provider [phone] Bridgette Conte Unavailable Encounter Details Date Type Department Care Team (Latest Contact Info) Description 08/06/2024 Travel Social History Tobacco Use Types Packs/Day Years [...] AM EDT documented as of this encounter Plan of Treatment Upcoming Encounters Date Type Department Care Team (Late st Contact Info) Description 10/22/2024 2:15 PM EDT Office Visit [facility] [address] [place] [address] Juani Helton ANP [address] [place] [address] documented as of this encounter Visit Diagnoses Not on filedocumented in this encounter Additional Health Concerns Assessment Noted Time PHQ-9 Depression Total Score: 5 01/23/20 24 2:29 PM EDT documented as of this encounter Care Teams Office Professionals Relationship Specialty Start Date End Date Juani Helton ANP [address] [place] [address] PCP - General Family Medicine 01/06/20 Bridgette Conte 175 [facility] 2nd Floor [address] [place] [address] Gastroenterology 04/17/24 [facility] [place] CUST[place] ACCOUNT ADMINISTRATOR Kitchen Porter 04/17/24 documented as of this encounter
--- OUTSIDE RECORDS SUMMARY | 2024-08-07 13:52 | XMS_ITS | Clinical Summary ---
Author Organization [employer] Address [address] [facility] [address] [place] [address] Care Team Providers Care Field Professional Name Role Phone Verito Cisneros YURI Primary Care Provider [phone] Bridgette Conte Unavailable Allergies Active Allergy Reactions Criticality Noted Date Comments Empagliflozin 01/23/2024 Yeast infections Penicillins Rash Low Medications Spacer/Aero-Holdi ng Chambers (Compact Space Chamber) device Inhale every 4 (four) hours. 04/27/20 17 Active cholecalciferol (Vitamin D3) 25 MCG (1000 UT) tabletIndications :Vitamin deficiency TAKE 1 TABLET BY MOUTH EVERY DAY 90 tablet 3 06/10/19 23 Active Blood Pressure kitIndications:Hy pertension associated with diabetes ([facility]/HCC) Take once daily, seated in chair w/ feet on floor 1 kit 09/13/19 23 Active cyanocobalamin (Vitamin B-12) 1000 MCG tabletIndications :Vitamin deficiency TAKE 1 TABLET BY MOUTH EVERY DAY 90 tablet 3 04/28/20 23 Active atorvastatin (Lipitor) 10 MG tabletIndications :Type 2 diabetes mellitus with hyperlipidemia (CMS/HCC) ([facility]) Take 1 tablet (10 mg) by mouth Once per day. 90 tablet 3 01/23/20 24 Active ibuprofen 800 MG tabletIndications :Acute bilateral low back pain with left-sided sciatica TAKE 1 TABLET BY MOUTH EVERY 8 HOURS NEEDED FOR PAIN WITH FOOD 90 tablet 01/23/20 24 Active omeprazole (PriLOSEC) [address] capsuleIndication s:Gastroesophagea l reflux disease, unspecified whether esophagitis present Take 1 capsule by oral route every day before a meal for acid reflux 90 capsule 3 01/23/20 24 Active Alcohol Swabs padsIndications:T ype 2 diabetes mellitus with hyperglycemia, without long-term current use of insulin ([facility]) 1 each if needed (to clean skin). 100 each 01/23/20 24 Active FreeStyle lancetsIndication s:Type 2 diabetes mellitus with hyperglycemia, without long-term current use of insulin ([facility]) 1 each by Other route 3 times daily. 100 each 01/23/20 24 Active glucose blood (FREESTYLE LITE) test stripIndications: Type 2 diabetes mellitus with hyperglycemia, without long-term current use of insulin ([facility]) For use TID for blood sugar 100 strip 01/23/20 24 Active Ventolin HFA 108 (90 Base) MCG/ACT inhalerIndication s:Mild intermittent asthma without complication Inhale 2 puffs every 4 (four) hours if needed for wheezing. 18 g 1 04/17/20 24 Active metFORMIN XR (Glucophage-XR) 500 MG 24 hr tabletIndications :Type 2 diabetes mellitus with hyperglycemia, without long-term current use of insulin ([facility]) Take 2 pills in the morning and 2 in the evening with food. Do not crush, chew, or split. 180 tablet 04/17/20 24 Active propranolol LA (Inderal LA) 80 MG 24 hr capsuleIndication s:Chronic migraine with aura without status migrainosus, not intractable Take 1 capsule (80 mg) by mouth Once per day. Do not crush, chew, or split. 90 capsule 3 07/23/19 026 Active semaglutide (Ozempic) 2 MG/1.5ML solution pen-injectorIndic ations:Type 2 diabetes mellitus with hyperglycemia, without long-term current use of insulin ([facility]) Inject 1 mg under the skin 1 (one) time per week. 2 each 07/23/19 25 Active metroNIDAZOLE (Metrogel) 0.75 % vaginal gel Insert into the vagina at bedtime for 5 days. 70 g 08/07/19 25 025 Active ciprofloxacin (Cipro) 250 MG tablet Take 1 tablet (250 mg) by mouth 2 times daily for 3 days. 6 tablet 08/07/19 25 025 Active propranolol LA (Inderal LA) 80 MG 24 hr capsuleIndication s:Chronic migraine with aura without status migrainosus, not intractable Take 1 capsule (80 mg) by mouth at bedtime. Do not crush, chew, or split. 90 capsule 3 01/23/20 24 025 Discontinued(Re order (will not trigger notification to Pharmacy)) semaglutide (Ozempic) 2 MG/1.5ML solution pen-injectorIndic ations:Hypertensi on associated with diabetes (CMS/HCC) Inject 0.25mg once weekly for 4 weeks and then 0.5mg weekly going forward 1 each 3 04/17/20 24 025 Discontinued Active Problems Problem Noted Date Diagnosed Date Bilateral low back pain without sciatica 023 Overview (08/16/2022): Not consistant with pylonephritis. -Tylenol for pain. -RTC if symptoms worsen. Assessment & Plan (08/16/2022 11:47 AM EDT): Not consistant with pylonephritis. -Tylenol for pain. -RTC if symptoms worsen. 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 Pt in agreement with plan Lab Results Component Value Date HGBA1C 11.7 (A) 05/16/2022 Hypertriglyceridemia 04/14/2014 Anxiety 03/05/2014 Asthma 03/05/2014 Overview (04/17/2024): Mild intermittent. No albuterol use for 2 years. Migraine 03/05/2014 Hypertension associated with diabetes 08/16/2012 Resolved Problems Problem Noted Date Diagnosed Date Resolved Date Acute UTI 08/16/2022 01/23/2024 Encounters Date Type Department Care Team Description 08/06/2024 9:00 AM EDT Office Visit [facility] [address] [place] [phone] Pipe Ann MD Dysuria (Primary Dx); Hypertension associated with diabetes (CMS/HCC) 08/06/2024 Travel 07/22/2024 11:15 AM EDT Office Visit [facility] [address] [place] [phone] Verito Cisneros ANP Type 2 diabetes mellitus with hyperglycemia, without long-term current use of insulin (CMS/HCC) (Primary Dx); Chronic migraine with aura without status migrainosus, not intractable; Hypertension associated with diabetes (CMS/HCC) (CMS/HCC) 07/22/2024 Travel 07/15/2024 Patient Outreach [facility] [address] [place] [phone] Verito Cisneros ANP Pre-visit Planning ((Unable to reach for PVP screening, LVM)) 05/30/2024 Travel 05/20/2024 Telephone [facility] [address] [place] [phone] Cintia Munoz MA July recall from Last 3 Months Immunizations Name Administration Dates Next Due Influenza injectable quadrivalent preservative f ree 05/13/2019 Influenza, IIV3, injectable 03/13/2014 Influenza, Split (incl. purified surface antigen ) 02/27/2012 Influenza, seasonal, injectable, preservative fr ee 04/17/2024 Pneumococcal Conjugate PCV 13 05/13/2019 TD (adult), 2 Lf tetanus tox oid, preservative free, adsorbed 01/23/2024 Tdap 10/19/2010 Social History Tobacco Use Types Packs/Day Years Used Date Smoking Tobacco: Never Passive Smoke Exposure: Never Smokeless Tobacco: Never Tobacco Cessation:Counseling Given: Not Answered Alcohol Use Standard Drinks/Week Comments Never 0 [...] Orientation Straight 03/07/2022 10 :21 AM EDT Last Filed Vital Signs Vital Sign Reading [...] oz) 08/06/2024 9:07 A M EDT Height 152.4 cm (5') 07/22/2024 11:15 AM EDT Body Mass Index 23.55 07/22/2024 11:15 AM EDT Plan of Treatment Upcoming Encounters Date Type Department Care Team (Late st Contact Info) Description 10/22/2024 2:15 PM EDT Office Visit [facility] [address] [place], [place] [phone] Verito Cisneros, ANP [address] [place], [place] [phone] Health Maintenance Due Date Last Done Comments CT Colonography 1970 Colonoscopy 1970 Colorectal Cancer Screening 1970 FIT DNA/Cologuard 1970 FIT 1970 FOBT 1970 Sigmoidoscopy 1970 Eye Exam 1980 Hepatitis B Vaccines (1 of 3 - 19+ 3-dose series) 1989 Zoster Vaccines (1 of 2) 2020 Diabetes: Urine Protein Screening 09/17/2023 09/16/2022, 06/18/2021, 06/01/2020 Lipid Panel 09/17/2023 09/16/2022, 06/01/2020 Diabetes: Foot Exam 10/19/2023 10/18/2022, 10/18/2022, 10/18/2022, Additional history exists Diabetes: Hemoglobin A1C 10/22/2024 025, 04/17/2024, 01/23/2024, Additional history exists Depression Screening 01/22/2025 01/23/2024, 01/23/20 24 SDOH Screening 04/08/2025 04/08/2024 Alcohol/Substance Use Screening 04/17/2025 04/17/2024 COVID-19 Vaccine ( season) 2025 08/17/2020, 07/20/2020 Postponed from 01/07/2024 (Patient Refused) Cervical Cancer Screening 06/12/2025 HPV/Cotest 06/12/2025 06/12/2020, 020 09/2020, 06/12/2020 Pap Smear 06/12/2025 06/12/2020 Pneumococcal Vaccine: 50+ Years (2 of 2 - PPSV23) 07/22/2025 05/13/2019 Postponed from 07/08/2019 (Patient Refused) Tobacco Screening 08/06/2025 08/06/2024 Mammogram 12/17/2025 12/18/2023, 12/06, 09/05/2022, Additional history exists DTaP/Tdap/Td Vaccines (3 - Td or Tdap) 01/22/2034 01/23/2024, 10/19/2010 RSV Patients and Patients Aged 60 years or older (1 - 1-dose 75+ series) 2045 HIV Screening Completed 06/01/2020 Hepatitis C Screening Completed 06/01/2020 Influenza Vaccine Completed 04/17/2024, , 03/13/2014, Additional history exists HIB Vaccines Aged Out No longer eligi [...] patient's age to complete this topic Meningococcal Vaccine Aged Out No althea elizabeth eligible based on patient's age to complete this topic RSV under 20 months Aged Out No longe r eligible based on patient's age to complete this topic Rotavirus Vaccines Aged Out No longer eligible based on patient's age to complete this topic Procedures Procedure Name Priority Date/Time Associated Diagnosis Comments POCT URINALYSIS DIPSTICK Routine 08/06/2024 9:32 AM EDT Dysuria POCT GLYCATED HEMOGLOBIN, TOTAL Routine 07/22/2024 11:40 AM EDT Type 2 diabetes mellitus with hyperglycemia, without long-term current use of insulin ([facility]) POCT GLUCOSE Routine 07/22/2024 11:40 AM EDT Type 2 diabetes mellitus with hyperglycemia, without long-term current use of insulin ([facility]) BI MAMMOGRAM SCREENING TOMOSYNTHESIS BILATERAL Routine 12/18/2023 11:20 AM EDT ALBUMIN, RANDOM URINE W/CREATININE Routine 09/16/2022 8:32 AM EDT Type 2 diabetes mellitus with hyperlipidemia (CMS/HCC) Hypertension associated with diabetes (CMS/HCC) LIPID PANEL, STANDARD Routine 09/16/2022 8:32 AM EDT Type 2 diabetes mellitus with hyperlipidemia (CMS/HCC) HM PAP/HPV Routine 06/12/2020 ZZZ HISTORICAL HEPATITIS C AB W/REFL TO HCV RNA, QN, PCR Routine 06/01/2020 8:42 AM EST HIV 1/2 ANTIGEN/ANTIBODY, FOURTH GENERATION W/RFL Routine 06/01/2020 8:42 AM EST from Last 3 Months or Most Recently Relevant to Health Maintenance Results * (ABNORMAL) POCT urinalysis dipstick manually [...] CARE TEST ENTER/EDIT OR DERABLES Final Result * (ABNORMAL) POCT HGB A1C (07/22/2024 11:40 AM EDT) Hemoglobin A1C 8.8(A) 4.0 - 6.0 % QC Media Lot # [id number] Lot# Expiration Date , Blood 07/22/2024 11:4 0 AM EDT us Verito Cisneros ANP POINT OF CARE TEST ENTER/EDIT OR DERABLES Final Result * POCT Glucose (07/22/2024 11:40 AM EDT) Glucose Blood, POC 188 60 - 200 mg/dL QC Media Lot # [id number] Lot# Expiration Date [id number] Blood Capillary blood specimen / Unknown 07/22/2024 11:40 AM EDT us Verito Cisneros ANP POINT OF CARE TEST ENTER/EDIT OR DERABLES Final Result * BI Mammogram Screening Tomosynthesis Bilateral (12/18/2023 11:20 AM EDT) Anatomical Region Laterality Modality Breast Bilateral Mammography 12/18/2023 11:2 0 AM EDT Narrative 01/11/2024 3:01 PM EDT ? [facility] [place] ? [address] ?[place] [address] ? Mammography Report ? Signed ? Patient: Forman,Julia ?MR#: [id number] ? : 1970 ?Acct:[id number] ? Age/Sex: 53 / F ?ADM Date: 08/12/24 ? Loc: HO.MAMMO ? Attending Dr: Verito Cisneros [employer] ? Ordering Physician: BLAYNE,VERITO [employer] ?Results: 1Negative ? Date of Service: 12/17/24 ?Follow Up: 1 Year From Orig ?? inal Mammogram ? Procedure(s): MM tomosynthesis screening BI ?? Accession Number(s): [id number] ? cc: BLAYNE,VERITO [employer] ? EXAMINATION: ?? MM SCREENING DIGITAL BREAST TOMOSYNTHESIS, BILATERAL ? CLINICAL INFORMATION: ? Screening. Asymptomatic. ? COMPARISON: ?? Mammography: This study is compared with prior exams dating back to ? 2018. ? TECHNIQUE: ?? Digital breast tomosynthesis is performed in both the craniocaudal and ?? mediolateral oblique views along with computer-aided detection (CAD). ? Synthesized 2D images are generated from the tomosynthesis. ? FINDINGS: ?? The breasts are heterogeneously dense, which may obscure small masses ?? (ACR BI-RADS breast composition Category c). ? There are no significant masses, abnormal calcifications, or other ?? abnormalities. ? MM/MM tomosynthesis screening BI ?? IMPRESSION: ?? No mammographic evidence of malignancy. ? ASSESSMENT: ? BI-RADS BI-RADS 1 - Negative ? RECOMMENDATION: ?? Routine annual mammography screening. ? 1 year F/U ? This examination should not preclude the clinical evaluation of a ?? suspicious palpable abnormality. ? This patient's information was entered into a reminder system with a ?? target due date for their next mammogram. ? Electronically signed by: ??Roxy Braswell MD ??01/11/2024 02:57 PM EDT RP ? Dictated By: ?Roxy Braswell MD ? Signed By: ?<Electronically signed by Roxy Braswell MD in OV> ? 01/11/24 1457 ? DD/ 1120 ? TD/TT: 12/18/23 1135 ? Software Engineering Manager: ? Procedure Note Jose Mendes - 01/11/2024 [place] [facility] [address] [place] [address] Mammography Report Signed Patient: Temo Forman#: [id number] : 1970Acct:[id number] Age/Sex: 53 / FADM Date: 12/18/23 Loc: HO.MAMMO Attending Dr: Verito Cisneros NP Ordering Physician: VERITO CISNEROS NPResults: 1Negative Date of Service: 12/18/23Follow Up: 1 Year From Orig ina Mammogram Procedure(s): MM tomosynthesis screening BI Accession Number(s): [id number] cc: VERITO CISNEROS NP EXAMINATION: MM SCREENING DIGITAL BREAST TOMOSYNTHESIS, BILATERAL CLINICAL INFORMATION: Screening. Asymptomatic. COMPARISON: Mammography: This study is compared with prior exams dating back to 2018. TECHNIQUE: Digital breast tomosynthesis is performed in both the craniocaudal and mediolateral oblique views along with computer-aided detection (CAD). Synthesized 2D images are generated from the tomosynthesis. FINDINGS: The breasts are heterogeneously dense, which may obscure small masses (ACR BI-RADS breast composition Category c). There are no significant masses, abnormal calcifications, or other abnormalities. MM/MM tomosynthesis screening BI IMPRESSION: No mammographic evidence of malignancy. ASSESSMENT: BI-RADS BI-RADS 1 - Negative RECOMMENDATION: Routine annual mammography screening. 1 year F/U This examination should not preclude the clinical evaluation of a suspicious palpable abnormality. This patient's information was entered into a reminder system with a target due date for their next mammogram. Electronically signed by: Roxy Braswell MD 01/11/2024 02:57 PM EDT Dictated By: Roxy Braswell MD Signed By: <Electronically signed by Roxy Braswell MD in OV> 01/11/24 1457 DD/ 1120 TD/TT: 12/18/23 1135 Software Engineering Manager: Verito Cisneros [facility] BI PROCEDURES Edited Result - Final * Albumin, Random Urine W/Creatinine (09/16/2022 8:32 AM EDT) Creatinine, Random Urine 55 20 - 275 mg/dL [employer] [place] [employer] [facility] Albumin, Urine 0.9 See Note: mg/dL [employer] [place] [facility] Comment: Reference Range: Reference Range Not established Albumin/Creatinin e Ratio, Random Urine 16 <30 mcg/mg creat [employer] [place] [facility] Comment: The ADA defines abnormalities in albumin excretion as follows: Albuminuria Category ?Result (mcg/mg creatinine) Normal to Mildly increased ?? <30 Moderately increased ? 30-299 Severely increased ? > OR = 300 The ADA recommends that at least two of three specimens collected within a 3-6 month period be abnormal before considering a patient to be within a diagnostic category. 09/16/2022 8:32 AM EDT 09/16/2022 8:32 AM EDT Narrative [facility] - 09/17/2022 2:14 AM EDT FASTING:YES FASTING: YES [facility] LAB URINE ORDERABLES Final Resul t [facility] [address], [place] [address] [employer] [place] [employer] [address] [place] [address] * (ABNORMAL) Lipid Panel, Standard (09/16/2022 8:32 AM EDT) Cholesterol, Total 202(H) <200 mg/dL [employer] [place] [facility] HDL Cholesterol 44(L) > OR = 50 mg/dL [employer] [place] [facility] Triglycerides 435(H) <150 mg/dL [employer] [place] [facility] Comment: If a non-fasting specimen was collected, consider repeat triglyceride testing on a fasting specimen if clinically indicated. Jamie et al. J. of Clin. Lipidol. 2015;9:129-169. LDL Cholesterol [facility] [employer] [place] [facility] Comment: LDL cholesterol not calculated. Triglyceride levels greater than 400 mg/dL invalidate calculated LDL results. Reference range: <100 Desirable range <100 mg/dL for primary prevention; ?? <70 mg/dL for patients with CHD or diabetic patients with > or = 2 CHD risk factors. LDL-C is now calculated using the Yazan-Andrew calculation, which is a validated novel method providing better accuracy than the Friedewald equation in the estimation of LDL-C. Yazan SS et al. IRVING. 2013;310(19): 2917-9115 (http://MD Insider.The Political Student/faq/RSR164) Chol/HDLC Ratio 4.6 <5.0 (calc) [employer] [place] [facility] Non-HDL Cholesterol 158(H) <130 mg/dL (calc) [employer] [place] [facility] Comment: For patients with diabetes plus 1 major ASCVD risk factor, treating to a non-HDL-C goal of <100 mg/dL (LDL-C of <70 mg/dL) is considered a therapeutic option. Blood Venous blood specimen / Unknown 09/16/2022 8:32 AM EDT 09/16/2022 8:32 AM EDT Narrative [facility] - 09/17/2022 2:14 AM EDT FASTING:YES FASTING: YES [facility] LAB BLOOD ORDERABLES Final Resul t [facility] [address], [place] [address] [employer] [place] [employer] [address] [place] [address] * Hm Pap Smear (06/12/2020) Pap Negative for intraephithelial lesion or malignancy Negative for intraephithelial lesion or malignancy, Other HPV Undetected Historical Provider HEALTH MAINTENANCE Final Result * HEPATITIS C AB W/REFL TO HCV RNA, QN, PCR (06/01/2020 8:42 AM EST) HEPATITIS C ANTIBODY NON-REACT YANDEL NON-REACT [facility] INDEX 0.02 <1.00 [facility] Comment: ?? HCV antibody was non-reactive. There is no laboratory ?? evidence of HCV infection. ?? In most cases, no further action is required. However, if recent HCV exposure is suspected, a test for HCV RNA (test code 79882) is suggested. ?? For additional information please refer to http://education.[employer] Sense/faq/BNE91o7 (This link is being provided for informational/ educational purposes only.) ?? 06/01/2020 8:42 AM EST Verito Cisneros ANP HISTORICAL/NON ORDERABLE LABS Fi nal Result Performing Organization Address [facility] Phone Number [facility] [address] * HIV 1/2 ANTIGEN/ANTIBODY,FOURTH GENERATION W/RFL (06/01/2020 8:42 AM EST) HIV-1/2 ANTIGEN AND ANTIBODIES, 4TH GENERATION W/ REFLEX NON-REACT YANDEL NON-REACT YANDEL [facility] Comment: HIV-1 antigen and HIV-1/HIV-2 antibodies were not detected. There is no laboratory evidence of HIV infection. ?? PLEASE NOTE: This information has been disclosed to you from records whose confidentiality may be protected by state law. ??If your state requires such protection, then the state law prohibits you from making any further disclosure of the information without the specific written consent of the person to whom it pertains, or as otherwise permitted by law. A general authorization for the release of medical or other information is NOT sufficient for this purpose. ? For additional information please refer to http://MD Insider.[employer] Sense/faq/PIC360 (This link is being provided for informational/ educational purposes only.) ? The performance of this assay has not been clinically validated in patients less than 2 years old. ?? 06/01/2020 8:42 AM EST Verito Cisneros ANP LAB BLOOD ORDERABLES Final Resul t Performing Organization Address [facility] Phone Number [facility] [address] from Last 3 Months or Most Recently Relevant to Health Maintenance Insurance [employer] Care Teams Field Professional Relationship Specialty Start Date End Date Verito Cisneros ANP [address] [place] [address] PCP - General Family Medicine 01/06/20 Bridgette Conte [address] [facility] 2nd Floor [address] [place] [address] Gastroenterology 04/17/24 [facility] [place] AUTOM[employer]IC WINDER OPERATOR Die Sizer 04/17/24
--- OUTSIDE RECORDS SUMMARY | 2024-08-07 13:52 | XMS_ITS | Encounter Summary ---
Author Organization [employer] [facility] Address [address] [place] [address] [address] [place] [address] Care Team Providers Care Telegraph Office Manager Name Role Phone Juani Helton Primary Care Provider [phone] Bridgette Conte Unavailable Encounter Details Date Type Department Care Team (Late st Contact Info) Description 02/02/2023 Abstract [facility] [address] [place] [address] [phone] Juani Helton ANP [address] [place] [phone] Social History Tobacco Use Types Packs/Day Years Used Date Smoking Tobacco: Never Passive Smoke Exposure: Never Smokeless Tobacco: Never Alcohol Use Standard Drinks/Week Comments Never 0 (1 standard drink = 0.6 oz pur e alcohol) Depression Answer Date Recorded Patient Health Questionnaire-2 Score 0 11/16/2022 Comments Unknown Sex and Gender Information Value [...] Description 10/22/2024 2:15 PM EDT Office Visit [facility] [address] [place] [address] [phone] Juani Helton ANP [address] [place] [address] [phone] documented as of this encounter Procedures Procedure Name Priority Date/Time Associated Diagnosis Comments HM PAP/HPV Routine 06/12/2020 documented in this encounter Results * Pap Smear (06/12/2020) Pap Negative for intraephithelial lesion or malignancy Negative for intraephithelial lesion or malignancy, Other HPV Undetected Historical Provider HEALTH MAINTENANCE Final Result documented in this encounter Visit Diagnoses Not on filedocumented in this encounter Care Teams Telegraph Office Manager Relationship Specialty Start Date End Date Juani Helton ANP [address] [place] [address] PCP - General Family Medicine 01/06/20 Bridgette Conte [address] [facility] 2nd Floor [address] [place] [address] Gastroenterology 04/17/24 [facility] [place] VACUUM FORMING MACHINE OPERATOR Radio Frequency Engineer 04/17/24 documented as of this encounter
[2024-08-07 16:04] LABS: Bacterial Vaginosis PCR NEGATIVE (Negative); Candida Group PCR NOT DETECTED (Not Detect); Candida glab krusei PCR NOT DETECTED (Not Detect); Trichomonas vaginalis PCR NOT DETECTED (Not Detect)
[2024-08-07 16:34] LABS: CT PCR NOT DETECTED (Not Detect.); NG PCR NOT DETECTED (Not Detect.)
== END 2024-08-06 00:01 | disposition home or self-care (01) ==
LOC: HO.HHCLNP
PROVIDERS: Visit Provider Emergency Medicine
DX: R30.0 Dysuria (principal)
CPT/HCPCS: 81515; 87086; 87088; 87186; 87491; 87591

== ENCOUNTER 2024-08-20 09:13 | Outpatient (REF) | payer OTHER, SELFPAY ==
--- OUTSIDE RECORDS SUMMARY | 2024-08-20 10:00 | XMS_ITS | Encounter Summary ---
Author Organization [facility] Address [address] [place] [address] 7t [place] [address] Care Team Providers Care Pmo Consultant Name Role Phone Juani Helton Primary Care Provider [phone] Bridgette Conte Unavailable Reason for Visit * Reason Onset Date Comments call back 07/28/2022 Encounter Details Date Type Department Care Team (Late st Contact Info) Description 07/28/2022 Telephone [facility] [address] [place] [address] Juani Helton ANP [address] [place] [address] call back Social History Tobacco Use Types [...] Description 10/22/2024 2:15 PM EDT Office Visit [facility] [address] [place] [address] Juani Helton ANP [address] [place] [address] documented as of this encounter Visit Diagnoses Not on filedocumented in this encounter Care Teams Pmo Consultant Relationship Specialty Start Date End Date Juani Helton ANP [address] [place] [address] PCP - General Family Medicine 01/06/20 Bridgette Conte [address] [facility] 2nd Floor [address] [place] [address] Gastroenterology 04/17/24 [facility] METHODS STUDY ANALYST Sales Agent Pest Control Service 04/17/24 documented as of this encounter
--- OUTSIDE RECORDS SUMMARY | 2024-08-20 10:00 | XMS_ITS | Clinical Summary ---
Author Organization [employer] Address [address] [facility] 7t [place] [address] Care Team Providers Care Policy Specialist Name Role Phone Verito Cisneros YURI Primary Care Provider [phone] Bridgette Conte Unavailable Allergies Active Allergy Reactions [...] Blood Pressure kitIndications:Hy pertension associated with diabetes ([facility]/HCC) Take once daily, seated in chair w/ feet on floor 1 kit 09/13/19 23 Active cyanocobalamin (Vitamin B-12) 1000 MCG tabletIndications :Vitamin deficiency TAKE 1 TABLET BY MOUTH EVERY DAY 90 tablet 3 04/28/20 23 Active atorvastatin (Lipitor) 10 MG tabletIndications :Type 2 diabetes mellitus with hyperlipidemia (CMS/HCC) ([facility]) Take 1 tablet (10 mg) by mouth [...] hyperglycemia, without long-term current use of insulin (CMS/[facility]) 1 each if needed (to clean skin). 100 each 01/23/20 24 Active FreeStyle lancetsIndication s:Type 2 diabetes mellitus with hyperglycemia, without long-term current use of insulin (CMS/[facility]) 1 each by Other route 3 times daily. 100 each 01/23/20 24 Active glucose blood (FREESTYLE LITE) test stripIndications: Type 2 diabetes mellitus with hyperglycemia, without long-term current use of insulin (CMS/[facility]) For use TID for blood sugar 100 strip 01/23/20 24 Active Ventolin HFA 108 (90 Base) MCG/ACT inhalerIndication s:Mild intermittent asthma without complication Inhale 2 puffs every 4 (four) hours if needed for wheezing. 18 g 1 04/17/20 24 Active metFORMIN XR (Glucophage-XR) 500 MG 24 hr tabletIndications :Type 2 diabetes mellitus with hyperglycemia, without long-term current use of insulin (CMS/[facility]) Take 2 pills in the morning and 2 in the evening with food. Do not crush, chew, or split. 180 tablet 04/17/20 24 Active propranolol LA (Inderal LA) 80 MG 24 hr capsuleIndication s:Chronic migraine with aura without status migrainosus, not intractable Take 1 capsule (80 mg) by mouth Once per day. Do not crush, chew, or split. 90 capsule 3 07/23/19 25 026 Active semaglutide (Ozempic) 2 MG/1.5ML solution pen-injectorIndic ations:Type 2 diabetes mellitus with hyperglycemia, without long-term current use of insulin ([facility]) Inject 1 mg under the skin 1 (one) time per week. 2 each 07/23/19 25 Active propranolol LA (Inderal LA) 80 MG [...] 1 each 3 04/17/20 24 025 Discontinued metroNIDAZOLE (Metrogel) 0.75 % vaginal gel Insert into the vagina at bedtime for 5 days. 70 g 08/07/19 25 025 ciprofloxacin (Cipro) 250 MG tablet Take 1 tablet (250 mg) by mouth 2 times daily for 3 days. 6 tablet 08/07/19 25 025 Active Problems Problem Noted Date Diagnosed Date [...] Encounters Date Type Department Care Team Description 08/19/2024 Telephone [facility] [address] [place] [phone] Verito Cisneros ANP Status check blood pressure 08/11/2024 Orders Only [facility] [address] [place] [address]142 Pipe Ann MD Dysuria (Primary Dx) 08/11/2024 Telephone [facility] [address] [place] [phone] Pipe Ann MD 08/06/2024 9:00 AM EDT Office Visit [facility] [address] [place] [address] [phone] Pipe Ann MD Dysuria (Primary Dx); Hypertension associated with diabetes (CMS/HCC) 08/06/2024 Orders Only [facility] [address] [place] [address] [phone] Pipe Ann MD 08/06/2024 Travel 07/22/2024 11:15 AM EDT Office Visit [facility] [address] [place] [phone] Verito Cisneros ANP Type 2 diabetes mellitus with hyperglycemia, without long-term current use of insulin (CMS/HCC) (Primary Dx); Chronic migraine with aura without status migrainosus, not intractable; Hypertension associated with diabetes (CMS/HCC) (CMS/HCC) 07/22/2024 Travel 07/15/2024 Patient Outreach [facility] [address] [place] [phone] Verito Cisneros ANP Pre-visit Planning ((Unable to reach for PVP screening, LVM)) 05/30/2024 Travel from Last 3 Months Immunizations Name Administration [...] Office Visit [facility] [address] [place], [place] [phone] Verito Cisneros, ANP [address] [place] [address] Health Maintenance Due Date Last Done Comments [...] Additional history exists Diabetes: Hemoglobin A1C 10/22/2024 03/2 025, 04/17/2024, 01/23/2024, Additional history exists Depression Screening 01/22/2025 01/23/2024, 01/23/20 24 SDOH Screening 04/08/2025 04/08/2024 Alcohol/Substance Use Screening 04/17/2025 04/17/2024 COVID-19 Vaccine ( - season) 2025 08/17/2020, 07/20/2020 Postponed from 01/07/2024 [...] DIPSTICK Routine 08/06/2024 9:32 AM EDT Dysuria BACTERIAL VAGINOSIS PANEL Routine 08/06/2024 9:27 AM EDT CHLAMYDIA/N. GONORRHOEAE RNA, TMA, UROGENITAL Routine 08/06/2024 9:27 AM EDT Dysuria CULTURE, URINE, ROUTINE Routine 08/06/2024 9:27 AM EDT Dysuria POCT GLYCATED HEMOGLOBIN, TOTAL Routine 07/22/2024 11:40 AM EDT Type 2 diabetes mellitus with hyperglycemia, without long-term current use of insulin (CMS/HCC) POCT GLUCOSE Routine 07/22/2024 11:40 AM EDT Type 2 diabetes mellitus with hyperglycemia, without long-term current use of insulin (CMS/HCC) BI MAMMOGRAM SCREENING TOMOSYNTHESIS BILATERAL Routine 12/18/2023 [...] None Detected Urine 08/06/2024 9:32 AM EDT us Pipe Ann MD POINT OF CARE TEST ENTER/EDIT OR DERABLES Final Result * Bacterial Vaginosis (08/06/2024 9:27 AM EDT) TRICHOMONAS VAGINALIS DETECTION BY PCR NOT DETECTED Not Detect [facility] BACTERIAL VAGINOSIS DETECTION BY PCR NEGATIVE Negative [facility] Comment:The BV organism targ ets of the Xpert Xpress MVP test can becommensal in women; Xpert Xpress MVP positive results forbacterial vaginosis should be considered in conjunction withother clinical and patient information to determine thedisease status. Organisms that are not detected by the XpertXpress MVP test have also been reported to be associatedwith BV and aerobic vaginitis.The Xpert Xpress MVP test performance has not been evaluatedin patients under the age of 14. MILA GROUP DETECTION BY PCR NOT DETECTED Not Detect [facility] Mila glab krusei PCR NOT DETECTED Not Detect [facility] 08/06/2024 9:27 AM EDT 08/07/2024 11:22 AM EDT us Pipe Ann MD LAB MICROBIOLOGY - GENERAL ORDER SHERIDAN Final Result [facility] [address] [place] [phone] * Chlamydia/N. Gonorrhoeae RNA, TMA, Vagina (08/06/2024 9:27 AM EDT) CT PCR NOT DETECTED Not Detect. [facility] Comment:A not detected test result does not exclude the possibilityof infection because test results can be affected byimproper specimen collection, concurrent antibiotic therapy,or the number of organisms in the specimen which may bebelow the sensitivity of the test. As with many diagnostictests, results from the Xpert CT/NG assay should beinterpreted in conjunction with other laboratory andclinical data available to the clinician.Xpert CT/NG performance has not been evaluated in patientsless than 14 years of age. The assay should not be used forthe evaluationof suspected sexual abuse or for other medico-legalindications. Additional testing is recommended in anycircumstance when false positive or false negative resultscould lead to adverse medical, social or psychologicalconsequences. NG PCR NOT DETECTED Not Detect. [facility] Comment:A not detected test result does not exclude the possibilityof infection because test results can be affected byimproper specimen collection, concurrent antibiotic therapy,or the number of organisms in the specimen which may bebelow the sensitivity of the test. As with many diagnostictests, results from the Xpert CT/NG assay should beinterpreted in conjunction with other laboratory andclinical data available to the clinician.Xpert CT/NG performance has not been evaluated in patientsless than 14 years of age. The assay should not be used forthe evaluationof suspected sexual abuse or for other medico-legalindications. Additional testing is recommended in anycircumstance when false positive or false negative resultscould lead to adverse medical, social or psychologicalconsequences. Swab Vaginal structure / Unknown 08/06/2024 9:27 AM EDT 08/07/2024 11:23 AM EDT Narrative [facility] - 08/07/2024 4:34 PM EDT Vaginal us Pipe Ann MD LAB MICROBIOLOGY - GENERAL ORDER SHERIDAN Final Result [facility] [address] [place] [phone] * Culture, Urine, Routine (08/06/2024 9:27 AM EDT) Urine Urine specimen obtained by clean catch procedure / Unknown 08/06/2024 9:27 AM EDT 08/07/2024 11:23 AM EDT Comment:UACC Narrative [facility] - 08/11/2024 7:44 AM EDT Escherichia coli Quant 10,000 to 50,000 cfu/mL Escherichia coli: Ampicillin >=32(R) Escherichia coli: Cefazolin (Urine) <=1(S) Escherichia coli: Cefepime <=0.12(S) Escherichia coli: Ceftriaxone <=0.25(S) Escherichia coli: Ciprofloxacin >=4(R) Escherichia coli: Gentamicin <=1(S) Escherichia coli: Nitrofurantoin <=16(S) Escherichia coli: Trimethoprim/Sulfamethoxazole <=20(S) Specimen Source: Urine clean catch Pipe Ann MD LAB MICROBIOLOGY - GENERAL ORDER SHERIDAN Final Result Performing Organization Address City/State/[facility] Co de Phone Number [facility] [address] [place] [address] [phone] * (ABNORMAL) POCT HGB A1C (07/22/2024 11:40 AM EDT) Hemoglobin A1C 8.8(A) 4.0 - 6.0 % QC Media Lot # [id number] Lot# Expiration Date [id number] Blood 07/22/2024 11:4 0 AM EDT us [...] EDT Narrative 01/11/2024 3:01 PM EDT ? [facility] ? [address] ?[place] [address] ? Mammography Report ? Signed ? Patient: Forman,Julia ?MR#: [id number] ? : 1970 ?Acct:[id number] ? Age/Sex: 53 / F ?ADM Date: 12/18/23 ? Loc: HO.MAMMO ? Attending Dr: Verito Cisneros DROP FORGE OPERATOR ? Ordering Physician: VERITO CISNEROS NP ?Results: 1Negative ? Date of Service: 12/18/23 ?Follow Up: 1 Year From Orig ?? inal Mammogram ? Procedure(s): MM tomosynthesis screening BI ?? Accession Number(s): [id number] ? cc: VERITO CISNEROS NP ? EXAMINATION: ?? MM SCREENING DIGITAL BREAST [...] DD/ 1120 ? TD/TT: 12/18/23 1135 ? [employer] Teacher: ? Procedure Note Donchancejajamaryannter, Image - 01/11/2024 [place] [facility] [address] [place] [address] Mammography Report Signed Patient: Temo Forman#: [id number] : 1970Acct:[id number] Age/Sex: 53 / FADM Date: 12/18/23 Loc: HO.MAMMO Attending Dr: Verito Cisneros DROP FORGE OPERATOR Ordering Physician: VERITO CISNEROS NPResults: 1Negative Date of Service: 12/18/23Follow Up: 1 Year From Orig inal Mammogram Procedure(s): MM tomosynthesis screening BI Accession Number(s): [id number] cc: VERITO CISNEROS NP EXAMINATION: MM SCREENING [...] Roxy Braswell MD 01/11/2024 02:57 PM EDT RP Dictated By: Roxy Braswell MD Signed By: <Electronically signed by Roxy Braswell MD in OV> 01/11/24 1457 DD/ 1120 TD/TT: 12/18/23 1135 [employer]wind[employer] Teacher: Verito WELCH [facility] BI PROCEDURES Edited Result - Final * Albumin, Random Urine W/Creatinine (09/16/2022 8:32 AM EDT) Creatinine, Random Urine 55 20 - 275 mg/dL [facility] Albumin, Urine 0.9 See Note: mg/dL [facility] Comment: Reference Range: Reference Range Not established Albumin/Creatinin e Ratio, Random Urine 16 <30 mcg/mg creat [facility] Comment: The ADA defines abnormalities in albumin [...] 8:32 AM EDT 09/16/2022 8:32 AM EDT [facility] - 09/17/2022 2:14 AM EDT FASTING:YES FASTING: YES [facility] LAB URINE ORDERABLES Final Resul t GONZALO [address] [facility], [place] [address] [employer] [place] [facility] [address] [place] [phone] * (ABNORMAL) Lipid Panel, Standard (09/16/2022 8:32 AM EDT) Cholesterol, Total 202(H) <200 mg/dL [employer] [place] [facility] HDL Cholesterol 44(L) > OR = 50 mg/dL [employer] [place] [facility] Triglycerides 435(H) <150 mg/dL [employer] [place] [facility] Comment: If a non-fasting specimen was collected, consider repeat triglyceride testing on a fasting specimen if clinically indicated. Jamie et al. J. of Clin. Lipidol. 2015;9:129-169. LDL Cholesterol [employer] Comment: LDL cholesterol not calculated. Triglyceride levels greater than 400 mg/dL invalidate calculated LDL results. Reference range: <100 Desirable range <100 mg/dL for primary prevention; ?? <70 mg/dL for patients with CHD or diabetic patients with > or = 2 CHD risk factors. LDL-C is now calculated using the Yazan-Lorrie calculation, which is a validated novel method providing better accuracy than the Friedewald equation in the estimation of LDL-C. Yazan SS et al. IRVING. 2013;310(19): 1699-0508 (http://education.99designs/faq/YPT371) Chol/HDLC Ratio 4.6 <5.0 (calc) [employer] [place] [facility] Non-HDL Cholesterol 158(H) <130 mg/dL (calc) [employer] [place] [facility] Comment: For patients with diabetes plus 1 major ASCVD risk factor, treating to a non-HDL-C goal of <100 mg/dL (LDL-C of <70 mg/dL) is considered a therapeutic option. Blood Venous blood specimen / Unknown 09/16/2022 8:32 AM EDT 09/16/2022 8:32 AM EDT Narrative [facility] - 09/17/2022 2:14 AM EDT FASTING:YES FASTING: YES us Verito Cisneros ANP LAB BLOOD ORDERABLES Final Resul t Performing Organization Address City/[facility] Co de Phone Number [facility] [address], [place] [address] [facility] [facility] [address] [place] [address] * Hm Pap Smear (06/12/2020) Pap Negative for intraephithelial lesion or malignancy Negative for intraephithelial lesion or malignancy, Other HPV Undetected Historical Provider MD HEALTH MAINTENANCE Final Result * HEPATITIS C AB W/REFL TO HCV RNA, QN, PCR (06/01/2020 8:42 AM EST) HEPATITIS C ANTIBODY NON-REACT YANDEL NON-REACT YANDEL [facility] INDEX 0.02 <1.00 [facility] Comment: ?? HCV antibody was non-reactive. There is no laboratory ?? evidence of HCV infection. ?? In most cases, no further action is required. However, if recent HCV exposure is suspected, a test for HCV RNA (test code 96917) is suggested. ?? For additional information please refer to http://education.Tyto/faq/UYP54b7 (This link is being provided for informational/ educational purposes only.) ?? 06/01/2020 8:42 AM EST us Verito Cisneros ANP HISTORICAL/NON ORDERABLE LABS Fi nal Result Performing Organization Address City/[facility]/ZIP Co de Phone Number [facility] [address] * HIV 1/2 ANTIGEN/ANTIBODY,FOURTH GENERATION W/RFL (06/01/2020 8:42 AM EST) HIV-1/2 ANTIGEN AND ANTIBODIES, 4TH GENERATION W/ REFLEX NON-REACT YANDEL NON-REACT [facility] Comment: HIV-1 antigen and [...] ? For additional information please refer to http://education.Tyto/faq/VSE635 (This link is being provided for informational/ educational purposes only.) ? The performance of this assay has not been clinically validated in patients less than 2 years old. ?? 06/01/2020 8:42 AM EST Verito Cisneros [facility] LAB BLOOD ORDERABLES Final Resul t [facility] [address] from Last 3 Months or Most Recently Relevant to Health Maintenance [place] [address] [place] [address] Care Teams Policy Specialist Relationship Specialty Start Date End Date Verito Cisneros ANP [address] [place] [address] PCP - General Family Medicine 01/06/20 Bridgette Conte [address] [place] [address] 2nd Floor [address] [place] [address] Gastroenterology 04/17/24 [facility] PORTRAIT CONSULTANT Sign Language Instructor 04/17/24
--- OUTSIDE RECORDS SUMMARY | 2024-08-20 10:00 | XMS_ITS | Encounter Summary ---
Author Organization [employer] Address [address] [facility] 7t [place] [address] Care Team Providers Care Director Transition Name Role Phone Juani Helton Primary Care Provider [phone] Bridgette Conte Unavailable Reason for Visit * Reason Onset Date Comments Prior Authorization 07/29/2022 Encounter Details Date Type Department Care Team (Late st Contact Info) Description 07/29/2022 Telephone [facility] [address] [place], [place] [phone] Juani Helton ANP [address] [place] [address] Prior Authorization Social History Tobacco Use Types [...] 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 documented in this encounter Plan of Treatment Upcoming Encounters Date Type Department Care Team (Late st Contact Info) Description 10/22/2024 2:15 PM EDT Office Visit [facility] [address] [place] [address] Juani Helton ANP [address] [place] [address] documented as of this encounter Visit Diagnoses Not on filedocumented in this encounter Care Teams Director Transition Relationship Specialty Start Date End Date Juani Helton ANP [address] [place] [address] PCP - General Family Medicine 01/06/20 Bridgette Conet [address] [place] [address] 2nd Floor [address] [place] [address] Gastroenterology 04/17/24 [facility] PATIENT CLERICAL ASSISTANT Publicity Director 04/17/24 documented as of this encounter
--- OUTSIDE RECORDS SUMMARY | 2024-08-20 10:01 | XMS_ITS | Encounter Summary ---
Author Organization [facility] Address [address] [place] [address] 7 [place] [address] Care Team Providers Care Fast Food Team Member Name Role Phone Juani Helton Primary Care Provider [phone] Bridgette Conte Unavailable Encounter Details Date Type Department Care Team (Late st Contact Info) Description 02/02/[address] [facility] [address] [place] [address] [phone] Juani Helton ANP [address] [place] [phone] Social History Tobacco Use Types Packs/Day Years [...] Description 10/22/2024 2:15 PM EDT Office Visit [facility] [address] [place] [address] [phone] Juani Helton ANP [address] [place] [address] [phone] documented as of this encounter Procedures Procedure Name Priority Date/Time Associated Diagnosis Comments HM PAP/HPV Routine 06/12/2020 documented in this encounter Results * Pap Smear (06/12/2020) Pap Negative for intraephithelial lesion or malignancy Negative for intraephithelial lesion or malignancy, Other HPV Undetected Historical Provider HEALTH MAINTENANCE Final Result documented in this encounter Visit Diagnoses Not on filedocumented in this encounter Care Teams Fast Food Team Member Relationship Specialty Start Date End Date Juani Helton ANP [address] [place] [address] PCP - General Family Medicine 01/06/20 Bridgette Conte [address] [facility] 2nd Floor [address] [place] [address] Gastroenterology 04/17/24 [facility] [place] SOUND TRUCK OPERATOR Leak Patcher 04/17/24 documented as of this encounter
--- OUTSIDE RECORDS SUMMARY | 2024-08-20 10:01 | XMS_ITS | Encounter Summary ---
Author Organization [employer] Address [address] [facility] 7t [place] [address] Care Team Providers Care Assistant Athletic Trainer Name Role Phone Juani Helton Primary Care Provider [phone] Bridgette Conte Unavailable Reason for Visit * Reason Onset Date Comments Status check blood pressure 08/19/2024 Encounter Details Date Type Department Care Team ([facility] st Contact Info) Description 08/19/2024 Telephone [facility] [address] [place], [place] [phone] Juani Helton ANP [address] [place] [address] Status check blood pressure Social History Tobacco Use Types Packs/Day Years [...] encounter Miscellaneous Notes * Telephone Encounter - Vanessa Velázquez RN - 08/20/2024 9:27 AM EDT Telephone call to pt who reports that she went to [place] for the last 2 weeks and didn't bringher BP machine. She asked for call back in 1 week for BP check. Advised her to take BP 1x daily 30-60 min after taking BP meds and to call clinic if consistently >150/90. Pt verbalized understanding, no further questions. * Telephone Encounter - Vanessa Velázquez RN - 08/19/2024 3:32 PM EDT Telephone call to pt to inquire about BP, no answer, left voicemail to call back [facility]. Will task to call again. * Telephone Encounter - Vanessa Velázquez RN - 08/19/2024 3:30 PM EDT ----- Message from Juani Helton sent at 07/22/2024 11:38 AM EDT ----- Please outreach pt for BP check 1 mo documented in this encounter Plan of Treatment Upcoming Encounters Date Type Department Care Team (Late st Contact Info) Description 10/22/2024 2:15 PM EDT Office Visit [facility] [address] [place] [address] Juani Helton ANP [address] [place] [address] documented as of this encounter Visit Diagnoses Not on filedocumented in this encounter Additional Health Concerns Assessment Noted Time PHQ-9 Depression Total Score: 5 01/23/20 2:29 PM EDT documented as of this encounter Care Teams Assistant Athletic Trainer Relationship Specialty Start Date End Date Juani Helton ANP [address] [place] [address] PCP - General Family Medicine 01/06/20 Bridgette Conte [address] [place] [address] 2nd Floor [address] [place] [address] Gastroenterology 04/17/24 [employer] RETAIL SALESPERSON Teletypesetter Monitor 04/17/24 documented as of this encounter
--- OUTSIDE RECORDS SUMMARY | 2024-08-20 10:01 | XMS_ITS | Clinical Summary ---
Author Organization [facility] Address [address] [place] [address] Phone Care Team Providers Care Try Out Person Name Role Phone Juani Helton Onesimo CERTIFIED PEDORTHOTIST Primary Care Provider [phone] Medications polyethylene glycol (Golytely) 236-22.74-6.74 -5.86 gram [...] Care Team Description 06/20/2024 Telephone Gastroenterology - [place] 175 [facility] [address] [address] Bridgette Conte MD special procedure [...] Info) Description 10/18/2024 7:30 AM EDT Appointment [facility] Endoscopy [address] [place] [address] Andrew Tapia DO 175 [facility] 200 [place] [address] Health Maintenance Due Date Last Done Comments [...] age to complete this topic Meningococcal B Vaccine Aged Out No l onger eligible based on patient's age to complete [...] topic Insurance MEDICAID - [place] Care Teams Try Out Person Relationship Specialty Start Date End Date Juani Helton NP [address] [place] [phone] PCP - General 01/24/24
[2024-08-20 11:25] LABS: Anion Gap 13 (12-20); Blood Urea Nitrogen 10 mg/dL (9-16); Calcium 10.2 mg/dL (8.4-10.2); Carbon Dioxide 27 mmol/L (22-29); Chloride 104 mmol/L (96-108); Cholesterol 134 mg/dL (<200); Estimated Glomerular Filt Rate > 60; Glucose Random 142 mg/dL (60-115); HDL Cholesterol 37 mg/dL (>40); LDL Cholesterol Calculated 61 mg/dL (<100); Potassium 4.9 mmol/L (3.3-5.1); Sodium 139 mmol/L (135-145); Triglycerides 182 mg/dL (<150)
[2024-08-20 11:41] LABS: TSH reflex Free T4 0.73 uIU/mL (0.32-4.0)
[2024-08-20 11:47] LABS: Vitamin B12 330 pg/mL (200-900)
[2024-08-20 12:10] LABS: Microalbumin Urine < 5.0 mg/L
== END 2024-08-20 09:14 | disposition home or self-care (01) ==
LOC: HO.HHCL 09:13
PROVIDERS: Nurse Practitioner Primary Care; Visit Provider Emergency Medicine
DX: E11.65 Type 2 diabetes mellitus with hyperglycemia (principal); R30.0 Dysuria
CPT/HCPCS: 36415; 80048; 80061; 82043; 82570; 82607; 84443; 87086; 87147

== ENCOUNTER 2024-12-05 13:05 | Outpatient (REF) | payer OTHER, SELFPAY ==
--- NOTE | ~2024-12-05 | US_ITS ---
EXAMINATION: US THYROID CLINICAL INFORMATION: Multinodular goiter, nontoxic. COMPARISON: 07/19/2021, 06/08/2020 TECHNIQUE: Linear transducer grayscale and color Doppler examination with attention to the region of the thyroid. FINDINGS: SIZE: Measurements of the thyroid lobes and nodules are given in sagittal, anteroposterior and transverse dimensions respectively. Right Thyroid Lobe: 5.4 x 1.8 x 2.3 cm, volume 11.8 mL. (Previously 13.1 mL). Parenchyma: The gland echotexture is homogeneous. Thyroid vascularity is normal. Left Thyroid Lobe: 5.2 x 1.5 x 2.0 cm, volume 8.0 mL. (Previously 8.2 mL). Parenchyma: The gland echotexture is homogeneous. Thyroid vascularity is normal. Isthmus: 0.3 cm in maximum AP dimension. Estimated total number of nodules greater than or equal to 1 cm: 0. Golf Ball Marker nodules are described as follows: 1. Location: Right mid pole. Size: 0.6 x 0.3 x 0.5 cm, volume 0.1 mL. (Previously measured 1.0 x 0.4 x 0.9 cm). Nodule characteristics: Composition: Solid (2). Echogenicity: Isoechoic (1). Shape: Not taller than wide (0). Margins: Ill-defined (0). Echogenic Foci: None (0). ACR TI-RADS total points: 3 ACR TI-RADS category: 3 2. There is a subcentimeter colloid cyst in the left thyroid lobe. NODES: No lymphadenopathy is seen in the tissue surrounding the thyroid gland. US/US thyroid IMPRESSION: 1. There is a smaller TR category 3 nodule measuring 0.6 cm in the right mid pole. No follow-up suggested. 2. Remainder of the thyroid is normal. ACR TI-RADS RECOMMENDATION REFERENCE: Ultrasound-guided fine-needle aspiration, followup ultrasound, no further follow up. * TR1 (0 point) and TR2 (2 points): No FNA or follow up. * TR3 (3 points): FNA if more than or equal to 2.5 cm in maximum dimension, followup ultrasound in 1, 3 and 5 years if 1.5 to 2.4 cm in maximum dimension. * TR4 (4-6 points): FNA if more than or equal to 1.5 cm in maximum dimension, followup ultrasound in 1, 2, 3 and 5 years if 1 to 1.4 cm in maximum dimension. * TR5 (more than or equal to 7 points): FNA if more than or equal to 1 cm in maximum dimension, followup ultrasound every year for 5 years if 0.5 to 0.9 cm in maximum dimension. * TR3, TR4 or TR5 nodules that are below the size threshold for followup receive no follow up. Electronically signed by: Chester Gold MD 12/05/2024 01:42 PM EDT
--- OUTSIDE RECORDS SUMMARY | 2024-12-05 13:17 | XMS_ITS | Encounter Summary ---
Author Organization [employer] Address [address] [place] [address] 7 [place] [address] Care Team Providers Care Door Opener Name Role Phone Juani Helton Primary Care Provider [phone] Bridgette Conte Unavailable Reason for Visit * Reason Onset Date Comments Prior Authorization 07/29/2022 Encounter Details Date Type Department Care Team (Late st Contact Info) Description 07/29/[address] 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 requesting a PA for medication empagliflozin (Jardiance) 10MG. documented in this encounter Plan of Treatment Upcoming Encounters Date Type Department Care Team (Late st Contact Info) Description 01/23/2025 1:00 PM EDT Office Visit [facility] [address] [place] [address] Juani Helton ANP [address] [place] [address] documented as of this encounter Visit Diagnoses Not on filedocumented in this encounter Care Teams Door Opener Relationship Specialty Start Date End Date Juani Helton ANP [address] [place] [address] PCP - General Family Medicine 01/06/20 Bridgette Conte [address] [place] [address] 2nd Floor [address] [place] [address] Gastroenterology 04/17/24 [facility] CT TECHNOLOGIST Web Content Manager 04/17/24 documented as of this encounter
--- OUTSIDE RECORDS SUMMARY | 2024-12-05 13:17 | XMS_ITS | Clinical Summary ---
Author Organization [facility] Address [address] [place] [address] Phone Care Team Providers Care Laundry Housekeeper Name Role Phone DanieJuani Onesimo MEYER Primary Care Provider [phone] Allergies Active Allergy Reactions Criticality Noted Date Comments Empagliflozin Itching 01/25/2024 Itchy eyes Penicillins Rash 01/25/2024 Medications polyethylene glycol (Golytely) 236-22.74-6.74 -5.86 gram [...] by the office 2 tablet 5 Active polyethylene glycol (Golytely) 236-22.74-6.74 -5.86 gram solution [...] by the office 2 tablet 5 Active metFORMIN XR (GLUCOPHAGE-XR) 500 mg 24 hr tablet TAKE 2 TABLETS BY MOUTH TWICE DAILY IN THE MORNING AND EVENING WITH FOOD. DO NOT BREAK, CRUSH, DISSOLVE OR CHEW Active atorvastatin (LIPITOR) 10 mg tablet Take 1 tablet (10 mg total) by mouth 1 (one) time each day. Active ibuprofen (ADVIL,MOTRIN) 800 mg tablet Take 1 tablet (800 mg total) by mouth every 8 (eight) hours if needed. Active omeprazole (PriLOSEC) [address] capsule TAKE 1 CAPSULE BY MOUTH EVERY DAY BEFORE MEALS Active propranolol LA (INDERAL LA) 80 mg 24 hr capsule TAKE 1 CAPSULE (80 MG) BY MOUTH ONCE PER DAY. DO NOT CRUSH, CHEW, OR SPLIT. 5 Active HAIR, SKIN AND NAILS, BIOTIN, ORAL Take by mouth. Activ e Encounters Date Type Department Care Team Description 10/15/2024 Telephone Gastroenterology - [place] 175 [facility] [address] [facility] [address] [place] [address] Andrew Tapia DO Special Procedure from Last 3 Months Social History Tobacco Use Types Packs/Day Years Used Date Smoking Tobacco: Never Assessed Comments Unknown Sex and Gender Information Value Date Recorded Sex Assigned at Not on file Legal Sex Female 11:41 AM EDT Gender Identity Not on file Sexual Orientation Not on file Last Filed Vital Signs Vital Sign Reading Time Taken Comments Blood Pressure - - Pulse - - Temperature - - Respiratory Rate - - Oxygen Saturation - - Inhaled Oxygen Concentration - - Weight 53.5 kg (118 lb) 10/11/2024 10:00 AM EDT Height 152.4 cm (5') 10/11/2024 10:00 AM EDT Body Mass Index 23.05 10/11/2024 10:00 AM EDT Plan of Treatment Upcoming Encounters Date Type Department Care Team (Late st Contact Info) Description 12/31/2024 7:30 AM EDT Appointment [facility] Endoscopy [address] [place] [address] Bridgette Conte MD 175 [facility] 200 [place], [place] [phone] Health Maintenance Due Date Last Done Comments [...] season) 2024 Colorectal Cancer Screening: Colonoscopy 02/16/2024 HIV Screening 02/16/2024 Hepatitis C Screening 02/16/2024 Social Influencers of Health Screening 02/16/2024 Depression Screening 05/08/2024 Influenza Vaccine (#1) 2025 HIB Vaccines Aged Out No longer [...] patient's age to complete this topic Insurance [facility] [place] [address] Care Teams Laundry Housekeeper Relationship Specialty Start Date End Date Juani Helton NP [address] [address] PCP - General 01/24/24
== END 2024-12-05 13:06 | disposition home or self-care (01) ==
LOC: HO.US 13:05
PROVIDERS: PCP Nurse Practitioner Primary Care; Visit Provider Nurse Practitioner Primary Care
DX: E04.2 Nontoxic multinodular goiter (principal)
CPT/HCPCS: 76536

== ENCOUNTER → 2024-12-05 13:07 | Outpatient (BNV) | payer OTHER, SELFPAY | PROVIDERS: PCP Nurse Practitioner Primary Care; Visit Provider Radiology Diagnostic Radiology | DX: E04.2 Nontoxic multinodular goiter (principal) | CPT/HCPCS: 76536 ==

== ENCOUNTER 2025-03-28 16:59 | Outpatient (REF) | payer OTHER, SELFPAY ==
--- OUTSIDE RECORDS SUMMARY | 2025-03-28 14:00 | XMS_ITS | Encounter Summary ---
Author Organization [employer] Address 75 [facility] 7t [place] [address] Care Team Providers Care Signaler Name Role Phone Juani Helotn Primary Care Provider [phone] Bridgette Conte Unavailable Reason for Visit * Reason Comments Abdominal Pain Encounter Details Date Type Department Care Team ([facility] st Contact Info) Description 03/28/2025 2:00 PM EST Office Visit [facility] [address] [place] [id number] Name, MD Tiburcio [address] [place] [phone] Urinary tract infection with hematuria, site unspecified (Primary Dx); Urinary frequency; Suprapubic pain Social History Tobacco Use Types Packs/Day Years [...] Sign Reading Time Taken Comments Blood Pressure 146/85 03/28/2025 1:48 PM EST Pulse 106 03/28/2025 1:48 PM EST Temperature 37 C (98.6 F) 03/28/2025 1:48 PM EST Respiratory Rate 19 03/28/2025 1:48 PM EST Oxygen Saturation 97% 03/28/2025 1:48 PM EST Inhaled Oxygen Concentration - - Weight 53.3 kg (117 lb 9.6 oz) 03/28/2025 1:48 P M EST Height 152.4 cm (5') 03/28/2025 1:48 PM EST Body Mass Index 22.97 03/28/2025 1:48 PM EST documented in this encounter Progress Notes * Tiburcio Mckeon, - 03/28/2025 2:00 PM EST Subjective Patient ID: Julia Forman is a 55 y.o. female who presents for Abdominal Pain. Patient comes complaining of 3 days of suprapubic pressure, urinary frequency and low back discomfort. She does not have any fevers, no chills, no nausea or vomiting, no CV angle discomfort. The patient is not sexually active and she is postmenopausal. She has a previous history of UTI back in August and last year. She is up-to-date with her pelvic exams that she does at [facility] gynecology. Review of Systems Constitutional: Negative for chills and fever. HENT: Negative for sore throat. Respiratory: Negative for cough, shortness of breath and wheezing. Cardiovascular: Negative for chest pain, palpitations and leg swelling. Gastrointestinal: Negative for abdominal pain. Genitourinary: See HPI Objective Vitals: 03/28/25 1348 BP: (!) 146/85 BP Location: Left arm Patient Position: Sitting BP Cuff Size: Adult Pulse: 106 Resp: 19 Temp: 98.6 ??F (37 ??C) TempSrc: Temporal SpO2: 97% Weight: 117 lb 9.6 oz (53.3 kg) Height: 5' (1.524 m) Physical Exam Constitutional: Appearance: Normal appearance. Cardiovascular: Rate and Rhythm: Normal rate and regular rhythm. Heart sounds: No murmur heard. No gallop. Pulmonary: Effort: Pulmonary effort is normal. No respiratory distress. Breath sounds: Normal breath sounds. No wheezing. Abdominal: Comments: Mild discomfort on deep palpation of the suprapubic area Musculoskeletal: Right lower leg: No edema. Left lower leg: No edema. Neurological: Mental Status: She is alert. Latest Reference Range & Units 03/28/25 14:15 Color, UA Yellow Specific [place], UA 1.010 pH, UA 5.5 Ketones, UA Negative Protein, UA Negative Nitrite, UA Negative, None Detected Negative RBC, UA Negative, None Detected Negative Clarity, UA Clear Glucose, UA Negative Leukocytes, UA Negative, Rare, Trace Trace (C) Bilirubin UA Negative Urobilinogen, UA 0.2 (C): Corrected Assessment/Plan Diagnoses and all orders for this visit: Urinary tract infection with hematuria, site unspecified Comments: Patient presents with urinary frequency, suprapubic pressure. She is not sexually active, she is postmenopausal and she has previous UTIs. Urine dipstick today showed leukocytes. I recommended treatment for possible UTI. I treated the patient with Bactrim based on results of previous urine cultures. She recommended drink plenty of fluids. I will send the urine for culture as well. Further recommendation based on the results and her response to the medication. Orders: - POCT urinalysis dipstick manually resulted (CPT 43625) - Urinalysis, Complete, with Reflex to Culture; Future Urinary frequency - POCT urinalysis dipstick manually resulted (CPT 07709) - Urinalysis, Complete, with Reflex to Culture; Future Suprapubic pain - POCT urinalysis dipstick manually resulted (CPT 54140) - Urinalysis, Complete, with Reflex to Culture; Future Other orders - sulfamethoxazole-trimethoprim (Bactrim DS) 800-160 MG tablet; Take 1 tablet by mouth 2 times daily for 3 days. documented in this encounter Plan of Treatment Scheduled Orders Name Type Priority Associated Diagnoses Orde r Schedule Urinalysis, Complete, with Reflex to Culture Lab Routine Urinary frequency Suprapubic pain Urinary tract infection with hematuria, site unspecified Expected: 03/28/2025 (Approximate), Expires: 03/28/2026 documented as of this encounter Goals Goal Patient Goal Type Associated Problems Recent Progress Patient-Stated? Author Help patients manage their type 2 diabetes Care Plan Help patients manage their type 2 diabetes Joanne Tanner MA Weekly blood pressure task Care Plan Weekly blood pressure task Joanne Tanner MA Help patients manage their type 2 diabetes Care Plan Help patients manage their type 2 diabetes Joanne Tanner MA Patient has chronic kidney disease Care Plan Patient has chronic kidney disease Joanne Tanner MA Weekly blood pressure task Care Plan Weekly blood pressure task Joanne Tanner MA Patient has chronic kidney disease Care Plan Patient has chronic kidney disease Joanne Tanner MA documented as of this encounter Procedures Procedure Name Priority Date/Time Associated Diagnosis Comments POCT URINALYSIS DIPSTICK Routine 03/28/2025 2:15 PM EST Urinary frequency Suprapubic pain Urinary tract infection with hematuria, site unspecified documented in this encounter Results * (ABNORMAL) POCT urinalysis dipstick manually resulted (CPT 15222) (03/28/2025 2:15 PM EST) Color, UA Yellow Clarity, UA Clear Glucose, UA Negative Bilirubin, UA Negative Ketones, UA Negative Spec Grav, UA 1.010 Blood, UA Negative Negative, None Detected pH, UA 5.5 Protein, UA Negative Urobilinogen, UA 0.2 Leukocytes, UA Trace Negative, Rare, Trace Nitrite, UA Negative Negative, None Detected Urine (Urine, Random) 03/28/2025 2:15 PM EST us Tiburcio Name POINT OF CARE TEST ENTER/EDIT OR DERABLES Edited Result - Final documented in this encounter Visit Diagnoses Diagnosis Urinary tract infection with hematuria, site unspecified- Primary Urinary frequency Suprapubic pain Abdominal pain, other specified site documented in this encounter Additional Health Concerns Active Problems Noted Date Diagnosed Date Help patients manage their type 2 diabetes 03/28 Weekly blood pressure task 03/28/2025 Help patients manage their type 2 diabetes 03/28 Patient has chronic kidney disease 03/28/2025 Weekly blood pressure task 03/28/2025 Patient has chronic kidney disease 03/28/2025 Assessment Noted Time PHQ-9 Depression Total Score: 5 01/23/20 2:29 PM EDT documented as of this encounter Care Teams Signaler Relationship Specialty Start Date End Date Juani Helton ANP [address] [place] [address] PCP - General Family Medicine 01/06/20 Bridgette Conte 175 [facility] 2nd Floor [address] [place] [address] Gastroenterology 04/17/24 [facility] METAL TANK ERECTOR Shoeshiner 04/17/24 documented as of this encounter
--- OUTSIDE RECORDS SUMMARY | 2025-03-28 17:03 | XMS_ITS | Encounter Summary ---
Author Organization [employer] Address [address] [place] [address] 7t [place] [address] Care Team Providers Care Cash Processing Specialist Name Role Phone Juani Helton Primary Care Provider [phone] Bridgette Conte Unavailable Reason for Visit * Reason Onset Date Comments call back 07/28/2022 Encounter Details Date Type Department Care Team ([facility] st Contact Info) Description 07/28/2022 Telephone [facility] MED[facility] [address] [place], [place] [phone] Juani Helton ANP [address] [place] [address] call back Social History Tobacco Use Types [...] documented in this encounter Plan of Treatment Not on file documented as of this encounter Visit Diagnoses Not on filedocumented in this encounter Care Teams Cash Processing Specialist Relationship Specialty Start Date End Date Juani Helton ANP [address] [place] [address] PCP - General Family Medicine 01/06/20 Bridgette Conte 175 [facility] 2nd Floor [address] [place] [address] Gastroenterology 04/17/24 [facility] PHARMACEUTICAL LABORATORY TECHNICIAN Marketing Outreach Coordinator 04/17/24 documented as of this encounter
--- OUTSIDE RECORDS SUMMARY | 2025-03-28 17:03 | XMS_ITS | Clinical Summary ---
Author Organization [facility] Address [address] [place] [address] Phone Care Team Providers Care Integration Engineer Name Role Phone Juani Helton NP Primary Care Provider [phone] Allergies Active Allergy Reactions Criticality Noted Date [...] CAPSULE BY MOUTH EVERY DAY BEFORE MEALS 5 Active propranolol LA (INDERAL LA) 80 mg 24 hr capsule TAKE 1 CAPSULE (80 MG) BY MOUTH ONCE PER DAY. DO NOT CRUSH, CHEW, OR SPLIT. 5 Active HAIR, SKIN AND NAILS, BIOTIN, ORAL Take by mouth. Activ e Ventolin HFA 90 mcg/actuation inhaler Inhale 2 puffs by mouth every 4 (four) hours if needed. for wheezing 4 Active Ozempic 1 mg/dose (4 mg/3 mL) injection pen Inject 1 mg under the skin 1 (one) time per week. 5 Active Encounters Date Type Department Care Team Description 12/31/2024 6:55 AM EDT - 12/31/2024 11:59 PM EDT Hospital Encounter [facility] Endoscopy [address] [place] [address] Bridgette Conte MD Georgette, Nathaniel, CRNA Walsh, Michael, DO Colon cancer screening Discharge Disposition: Home or Self Care from Last 3 Months Social History Tobacco Use Types Packs/Day Years Used Date Smoking Tobacco: Never Assessed Comments Unknown Sex and Gender Information Value Date Recorded Sex Assigned at Female 12/31/2024 6:51 AM EDT Legal Sex Female 11:41 AM EDT Gender Identity Female 12/31/2024 6:51 AM EDT Sexual Orientation Straight 12/31/2024 6: 51 AM EDT Last Filed Vital Signs Vital Sign Reading Time Taken Comments Blood Pressure - - Pulse - - Temperature - - Respiratory Rate - - Oxygen Saturation - - Inhaled Oxygen Concentration - - Weight 50.8 kg (112 lb) 12/24/2024 12:00 PM EDT Height 152.4 cm (5') 12/24/2024 12:00 PM EDT Body Mass Index 21.87 12/24/2024 12:00 PM EDT Plan of Treatment Health Maintenance Due Date Last Done Comments Breast Cancer Screening 1970 Colorectal Cancer Screening: Colonoscopy 1970 Diabetes: Annual GFR (Glomerular Filtration Rate) 1970 Diabetes: Annual Foot Exam 1980 Diabetes: Annual Retina Eye Exam 1980 Hepatitis B Vaccines (1 of 3 - 19+ 3-dose series) 1989 Cervical Cancer Screening: Pap Smear 1991 Pneumococcal Vaccine: 50+ Years (2 of 2 - PPSV23, PCV20, or PCV21) 07/08/2019 05/13/2019 RSV Immunization Adult Patients (1 - Risk 50-74 years 1-dose series) 2020 Zoster Vaccines (1 of 2) 2020 Hepatitis C Screening 02/16/2024 Social Influencers of Health Screening 02/16/2024 Depression Screening 05/08/2024 Diabetes: Annual Urine Albumin-Creatinine Ratio (uACR) 12/31/2024 Hypertension/CHF/CAD Annual BMP Blood Test 12/31/2024 COVID-19 Vaccine (3 - season) 2025 08/17/2020, 07/20/2020 Influenza Vaccine (#1) 2025 , 05/13/2019, 03/13/2014, Additional history exists Diabetes: Blood Sugar Control Test (HGBA1C) 04/23/2025 10/22/2024 Cholesterol Screening (Lipid Panel) 08/20/2029 08/20/2024 DTaP,Tdap,and Td Vaccines (3 - Td or Tdap) 01/22/2034 01/23/2024, 10/19/2010 HIV Screening Completed 06/01/2020 HIB Vaccines Aged Out No longer eligi [...] to complete this topic RSV Immunization Patients Under 20 months Aged Out No longer eligible based on patient's age to complete this topic Varicella Vaccines Aged Out No longer eligible based on patient's age to complete this topic Insurance [facility] Care Teams Integration Engineer Relationship Specialty Start Date End Date Juani Helton NP [address] [place] [phone] PCP - General 01/24/24
--- OUTSIDE RECORDS SUMMARY | 2025-03-28 17:03 | XMS_ITS | Clinical Summary ---
Author Organization [employer] Address [address] [facility] [place] [address] [place] [address] Care Team Providers Care Time Motion Analyst Name Role Phone Verito Cisneros YURI Primary Care Provider [phone] Bridgette Conte Unavailable Allergies Active Allergy Reactions Criticality Noted Date Comments Empagliflozin 01/23/2024 Yeast infections Penicillins Rash Low Medications Spacer/Aero-Holding Chambers (Compact Space Chamber) device Inhale every 4 (four) hours. 7 Active Blood Pressure kitIndications:Hype rtension associated with diabetes (HCC) Take once daily, seated in chair w/ feet on floor 1 kit 3 Active cyanocobalamin (Vitamin B-12) 1000 MCG tabletIndications:V itamin deficiency TAKE 1 TABLET BY MOUTH EVERY DAY 90 tablet 3 3 Active atorvastatin (Lipitor) 10 MG tabletIndications:T ype 2 diabetes mellitus with hyperlipidemia (HCC) Take 1 tablet (10 mg) by mouth Once per day. 90 tablet 3 4 Active ibuprofen 800 MG tabletIndications:A cute bilateral low back pain with left-sided sciatica TAKE 1 TABLET BY MOUTH EVERY 8 HOURS NEEDED FOR PAIN WITH FOOD 90 tablet 4 Active Alcohol Swabs padsIndications:Typ e 2 diabetes mellitus with hyperglycemia, without long-term current use of insulin ([facility]) 1 each if needed (to clean skin). 100 each 11 4 Active FreeStyle lancetsIndications: Type 2 diabetes mellitus with hyperglycemia, without long-term current use of insulin ([facility]) 1 each by Other route 3 times daily. 100 each 4 Active glucose blood (FREESTYLE LITE) test stripIndications:Ty pe 2 diabetes mellitus with hyperglycemia, without long-term current use of insulin ([facility]) For use TID for blood sugar 100 strip 11 4 Active Ventolin HFA 108 (90 Base) MCG/ACT inhalerIndications: Mild intermittent asthma without complication Inhale 2 puffs every 4 (four) hours if needed for wheezing. 18 g 1 4 Active metFORMIN XR (Glucophage-XR) 500 MG 24 hr tabletIndications:T ype 2 diabetes mellitus with hyperglycemia, without long-term current use of insulin ([facility]) Take 2 pills in the morning and 2 in the evening with food. Do not crush, chew, or split. 180 tablet 11 4 Active propranolol LA (Inderal LA) 80 MG 24 hr capsuleIndications: Chronic migraine with aura without status migrainosus, not intractable Take 1 capsule (80 mg) by mouth Once per day. Do not crush, chew, or split. 90 capsule 3 5 07/23/19 26 Active Semaglutide,0.25 or 0.5MG/DOS, (Ozempic, 0.25 or 0.5 MG/DOSE,) 2 MG/3ML solution pen-injectorIndicat ions:Type 2 diabetes mellitus with hyperglycemia, without long-term current use of insulin ([facility]) Inject 0.5 mg under the skin 1 (one) time per week. 3 mL 2 5 Active omeprazole (PriLOSEC) [address] capsuleIndications: Gastroesophageal reflux disease, unspecified whether esophagitis present TAKE 1 CAPSULE BY MOUTH EVERY DAY BEFORE MEALS 90 capsule 3 5 Active sulfamethoxazole-tr imethoprim (Bactrim DS) 800-160 MG tablet Take 1 tablet by mouth 2 times daily for 3 days. 6 tablet 5 03/31/20 25 Active Active Problems Problem Noted Date Diagnosed Date [...] Encounters Date Type Department Care Team Description 03/28/2025 2:00 PM EST Office Visit [facility] [address] [place] [address] Name, MD Tiburcio Urinary tract infection with hematuria, site unspecified (Primary Dx); Urinary frequency; Suprapubic pain 03/28/2025 Travel 02/11/2025 Telephone [facility] [address] [place] [address] Verito Cisneros ANP Appointment Request 02/06/2025 Telephone [facility] [address] [place] [phone] Verito Cisneros ANP cheri recall 01/31/2025 Refill [facility] [place] [address] Verito Cisneros ANP Gastroesophageal reflux disease, unspecified whether esophagitis present 01/23/2025 1:00 PM EDT Office Visit [facility] [place] [address] Verito Cisneros ANP Type 2 diabetes mellitus with hyperglycemia, without long-term current use of insulin ([facility]) 01/23/2025 Travel 01/22/2025 Telephone [facility] [place] [address] Verito Cisneros ANP chart prep 01/13/2025 Results Follow-Up [facility] [place] [address] Verito Cisneros ANP US Thyroid from Last 3 Months Immunizations Immunization Administration Dates Next Due Influenza injectable quadrivalent [...] Mass Index 22.97 03/28/2025 1:48 PM EST Plan of Treatment Health Maintenance Due Date Last Done Comments CT Colonography 1970 Colonoscopy 1970 Colorectal Cancer Screening 1970 FIT DNA/Cologuard 1970 FIT 1970 FOBT 1970 Sigmoidoscopy 1970 Eye Exam 1980 Hepatitis B Vaccines (1 of 3 - 19+ 3-dose series) 1989 RSV Patients and Patients Aged 60 years or older (1 - Risk 50-74 years 1-dose series) 2020 Zoster Vaccines (1 of 2) 2020 Diabetes: Foot Exam 10/19/2023 10/18/2022, 10/18/2022, 10/18/2022, Additional history exists COVID-19 Vaccine (3 - 2024- season) 2025 08/17/2020, 07/20/2020 Influenza Vaccine (#1) 2025 , 05/13/2019, 03/13/2014, Additional history exists Depression Screening 01/22/2025 01/23/2024, 01/23/20 24 SDOH Screening 04/08/2025 04/08/2024 Alcohol/Substance Use Screening 04/17/2025 04/17/2024 Diabetes: Hemoglobin A1C 04/24/2025 025, 10/22/2024, 07/22/2024, Additional history exists Cervical Cancer Screening 06/12/2025 HPV/Cotest 06/12/2025 06/12/2020, 02/0 09/2020, 06/12/2020 Pap Smear 06/12/2025 06/12/2020 Pneumococcal Vaccine: 50+ Years (2 of 2 - PPSV23, PCV20, or PCV21) 07/22/2025 05/13/2019 Postponed from 07/08/2019 (Patient Refused) Diabetes: Urine Protein Screening 08/20/2025 08/20/2024, 09/16/2022, 06/18/2021, Additional history exists Lipid Panel 08/20/2025 08/20/2024, 09/05, 06/01/2020 Disability Screening 10/22/2025 10/22/2024 Mammogram 12/17/2025 12/18/2023, 12/06, 09/05/2022, Additional history exists Tobacco Screening 03/28/2026 03/28/2025 DTaP/Tdap/Td Vaccines (3 - Td or Tdap) 01/22/2034 01/23/2024, 10/19/2010 HIV Screening Completed 06/01/2020 Hepatitis C Screening Completed 06/01/2020 HIB Vaccines Aged Out [...] on patient's age to complete this topic Goals Goal Patient Goal Type Associated Problems [...] Care Plan Patient has chronic kidney disease No Joanne Plasencia MA Procedures Procedure Name Priority Date/Time Associated Diagnosis Comments POCT URINALYSIS DIPSTICK Routine 03/28/2025 2:15 PM EST Urinary frequency Suprapubic pain Urinary tract infection with hematuria, site unspecified POCT GLYCATED HEMOGLOBIN, TOTAL Routine 01/23/2025 1:05 PM EDT Type 2 diabetes mellitus with hyperglycemia, without long-term current use of insulin ([facility]) POCT GLUCOSE Routine 01/23/2025 1:04 PM EDT Type 2 diabetes mellitus with hyperglycemia, without long-term current use of insulin ([facility]) ALBUMIN, RANDOM URINE W/CREATININE Routine 08/20/2024 9:16 AM EDT Type 2 diabetes mellitus with hyperglycemia, without long-term current use of insulin ([facility]) LIPID PANEL, STANDARD Routine 08/20/2024 9:16 AM EDT Type 2 diabetes mellitus with hyperglycemia, without long-term current use of insulin (CMS/HCC) BI MAMMOGRAM SCREENING TOMOSYNTHESIS BILATERAL Routine 12/18/2023 11:20 AM EDT HM PAP/HPV Routine 06/12/2020 ZZZ HISTORICAL HEPATITIS C AB W/REFL TO HCV RNA, QN, PCR Routine 06/01/2020 8:42 AM EST HIV 1/2 ANTIGEN/ANTIBODY, FOURTH GENERATION W/RFL Routine 06/01/2020 8:42 AM EST from Last 3 Months or Most Recently Relevant to Health Maintenance Results * (ABNORMAL) POCT urinalysis dipstick manually resulted (CPT 54515) (03/28/2025 2:15 PM EST) Color, UA Yellow Clarity, UA Clear Glucose, UA Negative Bilirubin, UA Negative Ketones, UA Negative Spec Grav, UA 1.010 Blood, UA Negative Negative, None Detected pH, UA 5.5 Protein, UA Negative Urobilinogen, UA 0.2 Leukocytes, UA Trace Negative, Rare, Trace Nitrite, UA Negative Negative, None Detected Urine (Urine, Random) 03/28/2025 2:15 PM EST us Tiburcio Mckeon MD POINT OF CARE TEST ENTER/EDIT OR DERABLES Edited Result - Final * (ABNORMAL) POCT Hgb A1c (01/23/2025 1:05 PM EDT) Hemoglobin A1C 8.0(A) 4.0 - 5.7 % QC Media Lot # [id number] Lot# Expiration Date [id number] Blood 01/23/2025 1:05 PM EDT us Verito WELCH POINT OF CARE TEST ENTER/EDIT OR DERABLES Final Result * (ABNORMAL) POCT Glucose (01/23/2025 1:04 PM EDT) Glucose Blood, POC 204(A) 60 - 200 mg/dL QC Media Lot # [id number] Lot# Expiration Date ,[id number] Blood Capillary blood specimen / Unknown 01/23/2025 1:04 PM EDT us Verito Cisneros ANP POINT OF CARE TEST ENTER/EDIT OR DERABLES Final Result * Albumin, Random Urine W/Creatinine (08/20/2024 9:16 AM EDT) Creatinine, Urine 102.40 mg/dL [facility] Microalbumin Urine <5.0 mg/L [facility] Microalbum Creatinine Ratio Ur TNP <30 ug/mg cr [facility] Comment:Unable to calculate albumin/creatinine ratio due to lowmicroalbumin or creatinine result. Urine 08/20/2024 9:16 AM EDT 08/20/2024 11:11 AM EDT us Verito Cisneros ANP LAB URINE ORDERABLES Final Resul t [facility] [address] [place] [phone] * (ABNORMAL) Lipid Panel, Standard (08/20/2024 9:16 AM EDT) Triglycerides 182(H) <150 mg/dL [facility] Comment:Desirable Triglyceri de: less than 150 mg/dLBorderline High Triglyceride 150-199 mg/dLHigh Triglyceride: 200-499 mg/dLVery High Triglyceride: greater than or equal to 5OO mg/dL Cholesterol 134 <200 mg/dL [facility] Comment:Desirable Cholestero l: less than 200 mg/dLBorderline High Cholesterol: 200-239 mg/dLHigh Cholesterol: greater than 239 mg/dL LDL Cholesterol Calculated 61 <100 mg/dL [facility] Comment:Desirable LDL: less than 100 mg/dLNear Optimal/Above Optimal LDL: 110- 129 mg/dLBorderline High LDL: 130-159 mg/dLHigh LDL: 160-189 mg/dLVery High LDL: greater than or equal to 190 mg/dL HDL Cholesterol 37(L) >40 mg/dL [facility] Comment:Desirable HDL: great er than 40 mg/dL Note: This HDL assay may give artificially low results in patients with liver disease. Blood Venous blood specimen / Unknown 08/20/2024 9:16 AM EDT 08/20/2024 11:02 AM EDT Verito Cisneros ANP LAB BLOOD ORDERABLES Final Resul t [facility] [address] [place], [place] [phone] * BI Mammogram Screening Tomosynthesis Bilateral (12/18/2023 11:20 AM EDT) Anatomical Region Laterality Modality Breast Bilateral Mammography 12/18/2023 11:2 0 AM EDT Narrative 01/11/2024 3:01 PM EDT [address] [place] [address] Mammography Report Signed Patient: Julia Forman MR#: [id number] : 1970 Acct:[id number] Age/Sex: 53 / F ADM Date: 12/18/23 Loc: HO.MAMMO Attending Dr: Verito Cisneros NP Ordering Physician: VERITO CISNEROS NP Results: 1Negative Date of Service: 12/18/23 Follow Up: 1 Year From Orig ina Mammogram Procedure(s): MM tomosynthesis screening BI Accession Number(s): [id number] cc: VERITO CISNEROS NP EXAMINATION: MM SCREENING [...] 01/11/24 1457 DD/ 1120 TD/TT: 12/18/23 1135 Access Nurse: Procedure Note Donotuseinterpreter, Image - [facility]/11/[facility] [address] [place] [address] Mammography Report Signed Patient: Temo Forman#: [id number] : 1970Acct:[id number] Age/Sex: 53 / FADM Date: 12/18/23 Loc: R[facility]SE[facility] Attending Dr: Verito Cisneros NP Ordering Physician: VERITO CISNEROS NPResults: 1Negative Date of Service: 12/18/23Follow Up: 1 Year From Orig inal Mammogram Procedure(s): MM tomosynthesis screening BI Accession Number(s): [id number] cc: VERITO CISNEROS NP EXAMINATION: MM SCREENING [...] 01/11/24 1457 DD/ 1120 TD/TT: 12/18/23 1135 Access Nurse: us Verito WELCH IMG BI PROCEDURES Edited Result - Final * Hm Pap Smear (06/12/2020) Pap Negative for intraephithelial lesion or malignancy Negative for intraephithelial lesion or malignancy, Other HPV Undetected Historical Provider [facility] Final Result * HEPATITIS C AB W/REFL TO HCV RNA, QN, PCR (06/01/2020 8:42 AM EST) HEPATITIS C ANTIBODY NON-REACT YANDEL NON-REACT YANDEL [facility] INDEX 0.02 <1.00 [facility] Comment: HCV antibody was non-reactive. There is no laboratory evidence of HCV infection. In most cases, no further action is required. However, if recent HCV exposure is suspected, a test for HCV RNA (test code 11907) is suggested. For additional information please refer to http://education.[employer].ApptheGame/faq/YCN86o2 (This link is being provided for informational/ educational purposes only.) 06/01/2020 8:42 AM EST us Verito WELCH HISTORICAL/NON ORDERABLE LABS Fi nal Result [facility] [address] * HIV 1/2 ANTIGEN/ANTIBODY,FOURTH GENERATION W/RFL (06/01/2020 8:42 AM EST) HIV-1/2 ANTIGEN AND ANTIBODIES, 4TH GENERATION W/ REFLEX NON-REACT YANDEL NON-REACT YANDEL [facility] Comment: HIV-1 antigen and HIV-1/HIV-2 antibodies were not detected. There is no laboratory evidence of HIV infection. PLEASE NOTE: This information has been disclosed to you from records whose confidentiality may be protected by state law. If your state requires such protection, then the state law prohibits you from making any further disclosure of the information without the specific written consent of the person to whom it pertains, or as otherwise permitted by law. A general authorization for the release of medical or other information is NOT sufficient for this purpose. For additional information please refer to http://education.kSARIA/faq/SDD687 (This link is being provided for informational/ educational purposes only.) The performance of this assay has not been clinically validated in patients less than 2 years old. 06/01/2020 8:42 AM EST Verito [facility] LAB BLOOD ORDERABLES Final Resul t [facility] [address] from Last 3 Months or Most Recently Relevant to Health Maintenance Additional Health Concerns Active Problems Noted Date Diagnosed Date Help patients manage their type 2 diabetes 03/28 Weekly blood pressure task 03/28/2025 Help patients manage their type 2 diabetes 03/28 Patient has chronic kidney disease 03/28/2025 Weekly blood pressure task 03/28/2025 Patient has chronic kidney disease 03/28/2025 [employer] 3 Care Teams Time Motion Analyst Relationship Specialty Start Date End Date Verito Cisneros ANP [address] [place] [address] PCP - General Family Medicine 01/06/20 Bridgette Conte [address] [facility] 2nd Floor [address] [place] [address] Gastroenterology 04/17/24 [facility] PAPERHANGER APPRENTICE Pilot Submersible 04/17/24
--- OUTSIDE RECORDS SUMMARY | 2025-03-28 17:03 | XMS_ITS | Encounter Summary ---
Author Organization [employer] Address [address] [place] [address] 7t [place] [address] Care Team Providers Care Piano Player Name Role Phone Juani Helton Primary Care Provider [phone] Bridgette Conte Unavailable Reason for Visit * Reason Onset Date Comments Prior Authorization 07/29/2022 Encounter Details Date Type Department Care Team ([facility] st Contact Info) Description 07/29/2022 Telephone [facility] [address] [place] [address] Juani Helton ANP [address] [place] [address] Prior Authorization Social History Tobacco Use Types [...] didn't need a PA 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 documented in this encounter Plan of Treatment Not on file documented as of this encounter Visit Diagnoses Not on filedocumented in this encounter Care Teams Piano Player Relationship Specialty Start Date End Date Juani Helton ANP [address] [place] [address] PCP - General Family Medicine 01/06/20 Bridgette Conte [address] [facility] 2nd Floor [address] [place] [address] Gastroenterology 04/17/24 [facility] Form Designer 04/17/24 documented as of this encounter
--- OUTSIDE RECORDS SUMMARY | 2025-03-28 17:03 | XMS_ITS | Encounter Summary ---
Author Organization [employer] Address [address] [place] [address] 7t [place] [address] Care Team Providers Care Can Capper Name Role Phone Juani Helton Primary Care Provider [phone] Bridgette Conte Unavailable Encounter Details Date Type Department Care Team (Late st Contact Info) Description 02/02/2023 Abstract [facility] [address] [place], [place] [phone] Juani Helton ANP [address] [place] [address] Social History Tobacco Use Types Packs/Day Years [...] as of this encounter Plan of Treatment Not on file documented as of this encounter Procedures Procedure Name Priority Date/Time Associated Diagnosis Comments PAP/HPV Routine 06/12/2020 documented in this encounter Results * Pap Smear (06/12/2020) Pap Negative for intraephithelial lesion or malignancy Negative for intraephithelial lesion or malignancy, Other HPV Undetected us Historical Provider [facility]INTENANCE Final Result documented in this encounter Visit Diagnoses Not on filedocumented in this encounter Care Teams Can Capper Relationship Specialty Start Date End Date Juani Helton ANP [address] [place] [address] PCP - General Family Medicine 01/06/20 Bridgette Conte [address] [facility] 2nd Floor [address] [place] [address] Gastroenterology 04/17/24 [facility] PHOTOGRAPHIC COLORIST Metal Ceiling Builder 04/17/24 documented as of this encounter
--- OUTSIDE RECORDS SUMMARY | 2025-03-28 17:03 | XMS_ITS | Encounter Summary ---
Author Organization [employer] Address [address] [facility] 7t [place] [address] Care Team Providers Care Wood Turning Lathe Operator Name Role Phone Juani Helton Primary Care Provider [phone] Bridgette Conte Unavailable Encounter Details Date Type Department Care Team (Latest Contact Info) Description 03/28/2025 Travel Social History Tobacco Use Types Packs/Day [...] on file documented as of this encounter Goals Goal [...] [place] documented as of this encounter Visit Diagnoses Not on filedocumented in this encounter Additional Health Concerns Active [...] documented as of this encounter Care Teams Wood Turning Lathe Operator Relationship Specialty Start Date End Date Juani Helton ANP [address] [place] [address] PCP - General Family Medicine 01/06/20 Bridgette Conte [address] [facility] 2nd Floor [address] [place] [address] Gastroenterology 12/11/24 [facility] INCOME TAX AUDITOR Fashion Consultant Selling 04/17/24 documented as of this encounter
[2025-03-28 17:37] LABS: Appearance Urine Clear; Glucose Urine UA Negative (Negative); PH 5.5 (5.0-9.0); Specific Gravity - Urine 1.010 (1.005-1.025); UMIC TRIGGER UACC YES
== END 2025-03-28 17:00 | disposition home or self-care (01) ==
LOC: HO.HHCLNP 16:59
PROVIDERS: Visit Provider Internal Medicine Geriatric Medicine
DX: N39.0 Urinary tract infection, site not specified (principal); R31.9 Hematuria, unspecified; R35.0 Frequency of micturition; R10.24 Suprapubic pain
CPT/HCPCS: 81001